=== PATIENT | male | born 1975 | race Caucasian/White ===

== ENCOUNTER 2017-05-15 09:33 | Inpatient (IN) | payer OTHER ==
[~2017-05-15] VITALS: Ht 167.6 cm; Wt 87.7 kg
[2017-05-15] VITALS (16 sets, daily range): BP systolic 112–124; BP diastolic 72–77; PULSE 60–89; RESP 20–28; TEMP 97.8–98.4; O2SAT 96–100
[2017-05-15] MEDS ORDERED: MORPHINE SULFATE 4 MG/ML INJ ONE ×2 (09:43→10:26)
[2017-05-15] MEDS ORDERED: ONDANSETRON HCL 4 MG/2 ML VIAL ONE (09:43)
[2017-05-15 10:03] LABS: AUTOMATED NEUTROPHIL # 16.3 TH/MM3 (1.8-7.7); BASOPHIL # 0.1 TH/MM3 (0-0.2); BASOPHIL % 0.6 % (0.0-2.0); EOSINOPHIL # 0.2 TH/MM3 (0-0.4); EOSINOPHIL % 1.1 % (0.0-4.0); HEMATOCRIT 43.9 % (39.0-51.0); HEMOGLOBIN 14.7 GM/DL (13.0-17.0); LYMPH % 7.7 % (9.0-44.0); LYMPHOCYTE # 1.5 TH/MM3 (1.0-4.8); MEAN CELL VOLUME 90.2 FL (80.0-100.0); MEAN CORPUSCULAR HEMOGLOBIN 30.3 PG (27.0-34.0); MEAN CORPUSCULAR HGB CONC 33.6 % (32.0-36.0); MEAN PLATELET VOLUME 8.6 FL (7.0-11.0); MONO % 5.1 % (0.0-8.0); NEUT % 85.5 % (16.0-70.0); PLATELET COUNT 281 TH/MM3 (150-450); RED BLOOD COUNT 4.86 MIL/MM3 (4.50-5.90); RED CELL DISTRIBUTION WIDTH 13.2 % (11.6-17.2)
[2017-05-15] MEDS ORDERED: PROPOFOL 200 MG/20 ML AMP ONE (10:05)
--- NOTE | 2017-05-15 10:10 | RADRPT ---
EXAM DATE/TIME: 05/15/2017 09:51 [facility] COMPARISON: No previous studies available for comparison. INDICATIONS : Trauma, fall from roof. RADIATION DOSE: 55.20 CTDIvol (mGy) MEDICAL HISTORY : None SURGICAL HISTORY : None. ENCOUNTER: Initial ACUITY: 1 day PAIN SCALE: 5/10 LOCATION: cranial TECHNIQUE: Multiple contiguous axial images were obtained of the head. Using automated exposure control and adj ustment of the mA and/or kV according to patient size, radiation dose was kept as low as reasonably a chievable to obtain optimal diagnostic quality images. DICOM format image data is available electro nically for review and comparison. FINDINGS: CEREBRUM: The ventricles are normal for age. No evidence of midline shift, mass lesion, hemorrhage or acute in farction. No extra-axial fluid collections are seen. POSTERIOR FOSSA: The cerebellum and brainstem are intact. The 4th ventricle is midline. The cerebellopontine angle i s unremarkable. EXTRACRANIAL: The visualized portion of the orbits is intact. SKULL: The calvaria is intact. No evidence of skull fracture. CONCLUSION: Negative for acute process. Carlos Mas MD FACR on May 15, 2017 at 10:07 Board Certified Radiologist. This report was verified electronically.
[2017-05-15] MEDS ORDERED: MIDAZOLAM HCL 5 MG/ML VIAL (1 ML) ONE ×2 (10:11)
--- NOTE | 2017-05-15 10:11 | RADRPT ---
EXAM DATE/TIME: 05/15/2017 09:51 [facility] COMPARISON: No previous studies available for comparison. INDICATIONS : Trauma, neck pain, fall from roof. RADIATION DOSE: 23.15 CTDIvol (mGy) MEDICAL HISTORY : None SURGICAL HISTORY : None. ENCOUNTER: Initial ACUITY: 1 day PAIN SCALE: 5/10 LOCATION: neck TECHNIQUE: Volumetric scanning of the cervical spine was performed. Multiplanar reconstructions in the sagittal, coronal and oblique axial planes were performed. Using automated exposure control and adjustment o f the mA and/or kV according to patient size, radiation dose was kept as low as reasonably achievable to obtain optimal diagnostic quality images. DICOM format image data is available electronically f or review and comparison. FINDINGS: VERTEBRAE: Normal vertebral body height. ALIGNMENT: No evidence of subluxation. C2-C3: The bony spinal canal is normal in size. No evidence of disc bulge or herniation. The neural forami na are bilaterally patent. C3-C4: The bony spinal canal is normal in size. No evidence of disc bulge or herniation. The neural forami na are bilaterally patent. C4-C5: The bony spinal canal is normal in size. No evidence of disc bulge or herniation. The neural forami na are bilaterally patent. C5-C6: The bony spinal canal is normal in size. No evidence of disc bulge or herniation. The neural forami na are bilaterally patent. C6-C7: The bony spinal canal is normal in size. No evidence of disc bulge or herniation. The neural forami na are bilaterally patent. C7-T1: The bony spinal canal is normal in size. No evidence of disc bulge or herniation. The neural forami na are bilaterally patent. CONCLUSION: Negative for fracture. Extensive subcutaneous emphysema from bilateral pneumothoraces. Carlos Mas MD FACR on May 15, 2017 at 10:08 Board Certified Radiologist. This report was verified electronically.
[2017-05-15] MEDS ORDERED: LIDOCAINE HCL 1% PF 30 ML VIAL ONE (10:12)
[2017-05-15] MEDS ORDERED: LIDOCAINE 1%/EPINEPHrine 1:100,000 SOLN 30 ML VIAL ONE (10:13)
[2017-05-15 10:14] LABS: PROTHROMBIN TIME - PATIENT 10.2 SEC (9.8-11.6)
--- NOTE | 2017-05-15 10:15 | RADRPT ---
EXAM DATE/TIME: 05/15/2017 09:51 [facility] COMPARISON: No previous studies available for comparison. INDICATIONS : Trauma, fall from roof. RADIATION DOSE: 64.04 CTDIvol (mGy) MEDICAL HISTORY : None SURGICAL HISTORY : None. ENCOUNTER: Initial ACUITY: 1 day PAIN SCORE: 5/10 LOCATION: facial TECHNIQUE: Volumetric scanning of the facial bones was performed. Using automated exposure control and adjustme nt of the mA and/or kV according to patient size, radiation dose was kept as low as reasonably achiev able to obtain optimal diagnostic quality images. DICOM format image data is available electronicall y for review and comparison. FINDINGS: ORBITS: The orbital and infraorbital osseous structures are intact. The retroconal structures have a normal configuration. No radiopaque foreign bodies are seen. NASAL BONE: The nasal bone and maxillary spine are intact ZYGOMATIC ARCHES: Symmetric without evidence of fracture. SINUSES: The maxillary, ethmoid and frontal sinuses are intact. No air-fluid levels seen. NASAL CAVITY: The nasal septum is intact and midline. The lacrimal ducts are intact. SOFT TISSUES: No radiopaque foreign bodies seen. No soft-tissue swelling is seen. INTRACRANIAL: No intracranial air seen. CRIBIFORM PLATE: Grossly intact. CONCLUSION: Negative for fracture. Moderate subcutaneous emphysema.. Carlos Mas MD FACR on May 15, 2017 at 10:12 Board Certified Radiologist. This report was verified electronically.
--- NOTE | 2017-05-15 10:30 | RADRPT ---
EXAM DATE/TIME: 05/15/2017 09:33 [facility] COMPARISON: No previous studies available for comparison. INDICATIONS : Fell 12 feet off roof pain left chest with shortness of breath. MEDICAL HISTORY : None. SURGICAL HISTORY : None. ENCOUNTER: Initial ACUITY: 1 day PAIN SCORE: 9/10 LOCATION: Left chest FINDINGS: A single portable frontal view the chest shows multiple acute left-sided rib fractures. These involve the third through ninth ribs. No discernible pneumothorax. Left apical pleural cap noted likely rela shine to blood or fluid. Right lung is clear. Subcutaneous air overlies the base of the neck. Heart is normal in size. CONCLUSION: 1. Left third through ninth rib fractures without pneumothorax. 2. Left apical cap likely related to fluid or blood. Honorio Neal Jr., MD on May 15, 2017 at 10:22 Board Certified Radiologist. This report was verified electronically.
--- NOTE | 2017-05-15 10:31 | RADRPT ---
EXAM DATE/TIME: 05/15/2017 09:33 [facility] COMPARISON: No previous studies available for comparison. INDICATIONS : Fell 12 feet from roof landing on back. MEDICAL HISTORY : None. SURGICAL HISTORY : None. ENCOUNTER: Initial ACUITY: 1 day PAIN SCORE: 10/10 LOCATION: Bilateral pelvis FINDINGS: 2 frontal views of the pelvis demonstrates no evidence of fracture. The bony pelvic ring is intact. Bony mineralization is normal. The soft tissues are intact. CONCLUSION: No acute disease. Honorio Neal Jr., MD on May 15, 2017 at 10:28 Board Certified Radiologist. This report was verified electronically.
[2017-05-15] MEDS ORDERED: ceFAZolin 2 GM PREMIX 50 ML ONE (10:33)
--- NOTE | 2017-05-15 10:39 | RADRPT ---
EXAM DATE/TIME: 05/15/2017 10:24 [facility] COMPARISON: CHEST SINGLE AP, May 15, 2017, 9:33. INDICATIONS : Bilateral chest tube placement. MEDICAL HISTORY : None. SURGICAL HISTORY : None. ENCOUNTER: Initial ACUITY: 1 day PAIN SCORE: Non-responsive. LOCATION: Bilateral chest FINDINGS: Left chest tube in good position. Right chest tube is extrapleural. Contusion is seen in the left l grayson CONCLUSION: Right chest tube is extrapleural. Carlos Mas MD FACR on May 15, 2017 at 10:35 Board Certified Radiologist. This report was verified electronically.
--- NOTE | 2017-05-15 10:40 | PD ---
HPI Chief Complaint: Fall off roof Time Seen by Provider: 09:38 Travel History International Travel<30 days: No Contact w/Intl Traveler<30days: No History of Present Illness HPI Middle age male here as trauma alert s/p fall off roof about 12 feet. Pt was initially a trauma 2 because they did not communicate the height he fell from and vital signs were stable. Pt complains of back pain and is moving all extremities with intact sensation. Pt had decreased breath sounds on left and bilateral crepitus on exam but CXR in trauma bay did not show pneumothorax. It showed multiple rib fracture on left. Pt is saturating at 95% on NC so decision made to have pt go to CT scan first before chest tube placement. My nurse Agatha was able to communicate with patient in [place]. He denies any PMH or allergies to medication. Pt was upgraded to trauma 1 after initial evaluation. I discussed with trauma surgeon Dr. Hayden and I accompanied pt to CT scan on monitor. Pt given morphine in trauma bay. PFSH Social History Tobacco Use: No Allergies-Medications (Allergen,Severity, Reaction): Coded Allergies: No Known Allergies (Verified Allergy, Unknown, 05/15/17) Reported Meds & Prescriptions Reported Meds & Active Scripts Active No Active Prescriptions or Reported Medications Review of Systems Except as stated in HPI: all other systems reviewed are Neg Physical Exam Narrative GENERAL: Middle age male in moderate distress. SKIN: Focused skin assessment warm/dry. HEAD: Atraumatic. Normocephalic. EYES: Pupils equal and round at 4mm bilaterally. ENT: No nasal bleeding or discharge. Mucous membranes pink and moist. NECK: Cervical spine collar in place. CARDIOVASCULAR: Regular rate and rhythm. No murmur appreciated. RESPIRATORY: + accessory muscle use. Coarse breath sounds on breath. Decreased breath sounds on left. CHEST WALL: +Crepitus in bilateral chest. GASTROINTESTINAL: Abdomen soft, non-tender, nondistended. MUSCULOSKELETAL: No obvious deformities. No clubbing. No cyanosis. No edema. NEUROLOGICAL: Awake and alert. No obvious cranial nerve deficits. Motor grossly within normal limits in all extremities. Sensation intact. Normal speech. PSYCHIATRIC: Appropriate mood and affect; insight and judgment normal. Data Data Last Documented VS Vital Signs Date Time Temp Pulse Resp B/P (MAP) Pulse Ox O2 Delivery O2 Flow Rate FiO2 05/15/17 11:00 97.8 88 20 124/77 (93) 97 Nasal Cannula 4.00 Orders Orders Ed Poc Ultrasound (05/15/17 09:40) I-Stat Profile (05/15/17 09:40) Complete Blood Count With Diff (05/15/17 09:40) Prothrombin Time / Inr (Pt) (05/15/17 09:40) Act Partial Throm Time (Ptt) (05/15/17 09:40) Type And Screen (05/15/17 09:40) Chest, Single Ap (05/15/17 09:40) Pelvis, Ap Only (Routine) (05/15/17 09:40) Iv Access Insert/Monitor (05/15/17 09:40) Ecg Monitoring (05/15/17 09:40) Oximetry (05/15/17 09:40) Oxygen Administration (05/15/17 09:40) Morphine Inj (Morphine Inj) (05/15/17 09:43) Ondansetron Inj (Zofran Inj) (05/15/17 09:43) Ct Brain W/O Iv Contrast(Rout) (05/15/17 09:48) Ct Cerv Spine W/O Contrast (05/15/17 09:48) Ct Abd/Pel W Iv Contrast(Rout) (05/15/17 09:48) Ct Thorax/ Chest W Iv Contrast (05/15/17 09:48) Ct Thor Spine W Iv Contrast (05/15/17 09:48) Ct Lumb Spine W Iv Contrast (05/15/17 09:48) Ct Facial Bones W/O Iv Cont (05/15/17 09:48) Propofol 200 Mg/20 Ml Inj (Diprivan 200 (05/15/17 10:05) Midazolam Inj (Versed Inj) (05/15/17 10:11) Midazolam Inj (Versed Inj) (05/15/17 10:11) Lidocaine Pf 1% Inj (Xylocaine-Mpf 1% In (05/15/17 10:12) Lidocai-Epi 1%-1:100,000 Inj (Xylocaine- (05/15/17 10:13) Morphine Inj (Morphine Inj) (05/15/17 10:26) Chest, Single Ap (05/15/17 ) Cefazolin 2 Gm Premix (Ancef 2 Gm Premix (05/15/17 10:33) Chest, Single Ap (05/15/17 ) Admit To Inpatient (05/15/17 ) Vital Signs (Adult) MAEGAN.QSHIFT (05/15/17 10:46) Intake + Output MAEGAN.Q8H (05/15/17 10:46) Neuro Checks MAEGAN.Q1H (05/15/17 10:46) Diet Npo (05/15/17 Lunch) Scd / Joel / Foot Pump MAEGAN.QSHIFT (05/15/17 10:46) Resp Incentive Spirometry (05/15/17 ) ^ Cervical Collar (05/15/17 10:46) Instruction (05/15/17 10:46) Complete Blood Count With Diff (05/16/17 06:00) Comprehensive Metabolic Panel (05/16/17 06:00) Sodium Chlor 0.9% 1000 Ml Inj (Ns 1000 M (05/15/17 11:00) Sodium Chloride 0.9% Flush (Ns Flush) (05/15/17 11:00) Enalaprilat Inj (Vasotec Inj) (05/15/17 11:00) Ondansetron Inj (Zofran Inj) (05/15/17 11:00) Pantoprazole Inj (Protonix Inj) (05/15/17 11:00) Docusate Sodium (Colace) (05/15/17 21:00) Magnesium Hydroxide Liq (Milk Of Magnesi (05/15/17 11:00) ^ Initiate Protocol (05/15/17 10:46) Instruction (05/15/17 10:46) [facility] (05/15/17 11:00) Chlorhexidine 2% Cloth (Chlorhexidine 2% (05/16/17 04:00) Chlorhexidine 2% Cloth (Chlorhexidine 2% (05/15/17 11:00) Mrsa Pcr Surveillance (05/15/17 10:46) Inpatient Certification (05/15/17 ) Consult Gui Gts (05/15/17 ) Iohexol 350 Inj (Omnipaque 350 Inj) (05/15/17 10:52) Admit Order (Ed Use Only) (05/15/17 11:06) Labs Laboratory Tests Test 05/15/17 09:40 White Blood Count 19.0 TH/MM3 Red Blood Count 4.86 MIL/MM3 Hemoglobin 14.7 GM/DL Bedside Hemoglobin 15.6 G/DL Hematocrit 43.9 % Bedside Hematocrit 46.0 % Mean Corpuscular Volume 90.2 FL Mean Corpuscular Hemoglobin 30.3 PG Mean Corpuscular Hemoglobin Concent 33.6 % Red Cell Distribution Width 13.2 % Platelet Count 281 TH/MM3 Mean Platelet Volume 8.6 FL Neutrophils (%) (Auto) 85.5 % Lymphocytes (%) (Auto) 7.7 % Monocytes (%) (Auto) 5.1 % Eosinophils (%) (Auto) 1.1 % Basophils (%) (Auto) 0.6 % Neutrophils # (Auto) 16.3 TH/MM3 Lymphocytes # (Auto) 1.5 TH/MM3 Monocytes # (Auto) 1.0 TH/MM3 Eosinophils # (Auto) 0.2 TH/MM3 Basophils # (Auto) 0.1 TH/MM3 CBC Comment DIFF FINAL Differential Comment Prothrombin Time 10.2 SEC Prothromb Time International Ratio 1.0 RATIO Activated Partial Thromboplast Time 22.9 SEC Bedside Sodium 139 MMOL/L Bedside Potassium 5.1 MMOL/L Bedside Chloride 101 MMOL/L Bedside Blood Urea Nitrogen 22 MG/DL Bedside Creatinine 0.9 MG/DL Bedside Glucose 155 MG/DL MDM Medical Decision Making Medical Screen Exam Complete: Yes Emergency Medical Condition: Yes Interpretation(s) Last Impressions Thoracic Spine CT 05/15/17947 Signed Impressions: Service Date/Time: Monday, May 15, 2017 09:58 - CONCLUSION: 1. No thoracic spine fracture. Honorio Neal Jr., MD Maxillofacial CT 05/15/17947 Signed Impressions: Service Date/Time: Monday, May 15, 2017 09:51 - CONCLUSION: Negative for fracture. Moderate subcutaneous emphysema.. Carlos Mas MD FACR Lumbar Spine CT 05/15/17947 Signed Impressions: Service Date/Time: Monday, May 15, 2017 09:58 - CONCLUSION: Negative for acute fracture. Mild degenerative changes. Carlos Mas MD FACR Head CT 05/15/17947 Signed Impressions: Service Date/Time: Monday, May 15, 2017 09:51 - CONCLUSION: Negative for acute process. Carlos Mas MD FACR Chest CT 05/15/17947 Signed Impressions: Service Date/Time: Monday, May 15, 2017 09:58 - CONCLUSION: 1. Bilateral rib fractures with moderate sized bilateral pneumothoraces. 2. Subcutaneous air overlying the neck and right chest. 3. Small amount of fluid within the left apex. Honorio Neal Jr., MD Cervical Spine CT 05/15/1748 Signed Impressions: Service Date/Time: Monday, May 15, 2017 09:51 - CONCLUSION: Negative for fracture. Extensive subcutaneous emphysema from bilateral pneumothoraces. Carlos Mas MD FACR Abdomen/Pelvis CT 05/15/1748 Signed Impressions: Service Date/Time: Monday, May 15, 2017 09:58 - CONCLUSION: 1. No abdominal visceral injury. 2. Multiple findings along the chest including subcutaneous emphysema, rib fractures, bilateral pneumothoraces, greater on the left. This will be discussed on CT chest. 3. Small incidental enhancing lesion in the liver. Silverio Ruffin MD Pelvis X-Ray 05/15/1740 Signed Impressions: Service Date/Time: Monday, May 15, 2017 09:33 - CONCLUSION: No acute disease. Honorio Neal Jr., MD Chest X-Ray 05/15/1740 Signed Impressions: Service Date/Time: Monday, May 15, 2017 09:33 - CONCLUSION: 1. Left third through ninth rib fractures without pneumothorax. 2. Left apical cap likely related to fluid or blood. Honorio Neal Jr., MD Chest X-Ray 05/15/17 0000 Signed Impressions: Service Date/Time: Monday, May 15, 2017 10:36 - CONCLUSION: 1. Repositioned right thoracostomy tube without discernible pneumothorax. 2. Developing consolidation within the left lung likely related to either fluid or contusion. 3. Left pneumothorax is not discernible on this study. Honorio Neal Jr., MD Chest X-Ray 05/15/17 0000 Signed Impressions: Service Date/Time: Monday, May 15, 2017 10:24 - CONCLUSION: Right chest tube is extrapleural. Carlos Mas MD FACR Differential Diagnosis Hemothorax vs. pneumothorax Narrative Course Middle age here as trauma after falling off roof at height of [address] a/p showed no abdominal visceral injury. CT cspine negative. CT chest showed bilateral rib fractures with moderate sized bilateral pneumothoraces. Subcutaneous air overlying neck and right chest. Small amount of fluid within left apex. CT brain negative. CT lumbar spine showed negative fracture. CT facial negative. CT TS showed no fracture. CXR showed left third through ninth rib fractures without pneumothorax. Left apical cap likely related to fluid or blood. Xray pelvis negative. Pt was brought back to the trauma bay for bilateral chest tube placement. Dr. Ontiveros did procedural sedation with 5mg of versed and 30mg of propofol. I placed left side chest tube while Dr. Pappas place right side chest tube. Dr. Hayden was in the room at this time. Repeat CXR showed right chest tube is extrapleural and left chest tube in good position so Dr. Pappas removed right chest tube and reinserted another chest tube in right chest. Repeat CXR showed repositioned right thoracostomy tube without discernible pneumothorax. Developing consolidation in left lung likely fluid or contusion. Left pneumothorax not discernible. Labs reviewed, leukocytosis at 19,000. H/H normal. Pt admitted to ICU under Dr. Hayden. Explained to family members what the results are as per patient request and answered all questions. Critical Care Narrative Aggregate critical care time was 40 minutes. Time to perform other separately billable procedures was not included in the critical care time. My time did not include minutes spent treating any other patients simultaneously or on activities that did not directly contribute to the patient's treatment. The services I provided to this patient were to treat and/or prevent clinically significant deterioration that could result in: cardiovascular collapse and . I provided critical care services requiring my management, as noted below: Chart data review, documentation time, medication orders and management, vital sign assessments/reviewing monitor data, ordering and reviewing lab tests, ordering and interpreting/reviewing x-rays and diagnostic studies, care of the patient and discussion of the patient with the admitting physicians. Procedures Procedure Narrative CHEST TUBE THORACOSTOMY: The left chest was prepped with chlorhexadine and sterilely draped. The area of the fifth intercostal interspace was infiltrated with 1% lidocaine plain. A 3 centimeter incision was made with a scalpel at the fifth intercostal space. Blunt dissection to the fourth intercostal interspace performed and the pleura was punctured with immediate bean of air. Finger was inserted in the space and thoracostomy tube was placed, directed posteriorly and superiorly. Tube draining well. The thoracostomy tube was secured with suture. Sterile seal dressing placed. Patient tolerated procedure well. Diagnosis Primary Impression: Bilateral pneumothoraces Admitting Information Admitting Physician Requests: Admit Scripts No Active Prescriptions or Reported Meds Julia Bobby DO May 15, 2017 10:40
--- NOTE | 2017-05-15 10:42 | RADRPT ---
EXAM DATE/TIME: 05/15/2017 09:58 [facility] COMPARISON: No previous studies available for comparison. INDICATIONS : Trauma, fall from roof. IV CONTRAST: 96 cc Omnipaque 350 (iohexol) IV ORAL CONTRAST: No oral contrast ingested. RADIATION DOSE: 18.62 CTDIvol (mGy) MEDICAL HISTORY : None SURGICAL HISTORY : None. ENCOUNTER: Initial ACUITY: 1 day PAIN SCALE: 5/10 LOCATION: abdomen TECHNIQUE: Volumetric scanning of the abdomen and pelvis was performed. Using automated exposure control and ad justment of the mA and/or kV according to patient size, radiation dose was kept as low as reasonably achievable to obtain optimal diagnostic quality images. DICOM format image data is available electro nically for review and comparison. FINDINGS: LOWER LUNGS: There is left pneumothorax as well as a small right-sided pneumothorax. Extensive subcutaneous emphys dionte the right. Old left-sided rib fractures. LIVER: Homogeneous density small enhancing lesion along the lateral right lobe. There is no dilation of the biliary tree. No calcified gallstones. SPLEEN: Normal size without lesion. PANCREAS: Within normal limits. KIDNEYS: Normal in size and shape. There is no mass, stone or hydronephrosis. ADRENAL GLANDS: Within normal limits. VASCULAR: There is no aortic aneurysm. BOWEL/MESENTERY: The stomach, small bowel, and colon demonstrate no acute abnormality. There is no free intraperitone al air or fluid. ABDOMINAL WALL: Within normal limits. RETROPERITONEUM: There is no lymphadenopathy. BLADDER: No wall thickening or mass. REPRODUCTIVE: Within normal limits. INGUINAL: There is no lymphadenopathy or hernia. MUSCULOSKELETAL: Multiple left-sided rib fractures. CONCLUSION: 1. No abdominal visceral injury. 2. Multiple findings along the chest including subcutaneous emphysema, rib fractures, bilateral pneum othoraces, greater on the left. This will be discussed on CT chest. 3. Small incidental enhancing lesion in the liver. Silverio Ruffin MD on May 15, 2017 at 10:14 Board Certified Radiologist. This report was verified electronically.
--- NOTE | 2017-05-15 10:45 | RADRPT ---
EXAM DATE/TIME: 05/15/2017 09:58 [facility] COMPARISON: No previous studies available for comparison. INDICATIONS : Trauma, fall from roof. IV CONTRAST: 96 cc Omnipaque 350 (iohexol) IV RADIATION DOSE: 18.62 CTDIvol (mGy) MEDICAL HISTORY : None SURGICAL HISTORY : None. ENCOUNTER: Initial ACUITY: 1 day PAIN SCALE: 5/10 LOCATION: chest TECHNIQUE: Volumetric scanning of the chest was performed. Using automated exposure control and adjustment of t he mA and/or kV according to patient size, radiation dose was kept as low as reasonably achievable to obtain optimal diagnostic quality images. DICOM format image data is available electronically for review and comparison. Follow-up recommendations for detected pulmonary nodules are based at a minimum on nodule size and pa tient risk factors according to Fleischner Society Guidelines. FINDINGS: Moderate-sized bilateral anterior layering pneumothoraces. The left is slightly larger than the right . Subcutaneous air tracks over the right chest and the base of the neck bilaterally. Acute left first through 10th rib fractures noted. Acute right first and second rib fractures. The heart and mediasti nal structures are unremarkable. A small amount of fluid is seen at the left apex. No mediastinal hem atoma. Pulmonary arteries and aorta are normal in caliber. See the CT the abdomen and pelvis reported separately. CONCLUSION: 1. Bilateral rib fractures with moderate sized bilateral pneumothoraces. 2. Subcutaneous air overlying the neck and right chest. 3. Small amount of fluid within the left apex. Honorio Neal Jr., MD on May 15, 2017 at 10:32 Board Certified Radiologist. This report was verified electronically.
--- NOTE | 2017-05-15 10:51 | RADRPT ---
EXAM DATE/TIME: 05/15/2017 09:58 [facility] COMPARISON: No previous studies available for comparison. INDICATIONS : Trauma, fall from roof. IV CONTRAST: 94 cc Omnipaque 350 (iohexol) IV ; Cumulative dose for multiple exams. RADIATION DOSE: 18.62 CTDIvol (mGy) MEDICAL HISTORY : None SURGICAL HISTORY : None. ENCOUNTER: Initial ACUITY: 1 day PAIN SCALE: 5/10 LOCATION: lower back TECHNIQUE: Volumetric scanning of the lumbar spine was performed. Multiplanar reconstructions in the sagittal, coronal and oblique axial planes were performed. Using automated exposure control and adjustment of the mA and/or kV according to patient size, radiation dose was kept as low as reasonably achievable t o obtain optimal diagnostic quality images. DICOM format image data is available electronically for review and comparison. FINDINGS: CONUS MEDULLARIS: Normal. PARASPINAL SOFT TISSUES: Normal. LUMBAR CORD: Normal. DURAL SAC: Normal. L1-L2: The disc, uncovertebral joints, central canal, foramina, and facets are normal. L2-L3: The disc, uncovertebral joints, central canal, foramina, and facets are normal. L3-L4: The disc, uncovertebral joints, central canal, foramina, and facets are normal. CONCLUSION: Negative for acute fracture. Mild degenerative changes. Carlos Mas MD FACR on May 15, 2017 at 10:39 Board Certified Radiologist. This report was verified electronically.
[2017-05-15] MEDS ORDERED: IOHEXOL 350 MG/ML 10 ML VIAL (for RAD DIAG) IVCONTRAST ONE (10:52)
--- NOTE | 2017-05-15 10:53 | RADRPT ---
EXAM DATE/TIME: 05/15/2017 10:36 [facility] COMPARISON: CHEST SINGLE AP, May 15, 2017, 10:24. INDICATIONS : Right chest tube repositioning. MEDICAL HISTORY : None. SURGICAL HISTORY : None. ENCOUNTER: Initial ACUITY: 1 day PAIN SCORE: Non-responsive. LOCATION: Right chest TECH NOTE: KEVIN REDDY MR#[id number] :[birth year] Exam date/desc:May 15, 2017CHEST SINGLE AP FINDINGS: Single portable frontal view the chest shows a right thoracostomy tube which has been repositioned in to the hemithorax. The tip projects towards the midline near the superior portion of the right hilum. No pneumothorax observed. The left-sided pneumothorax is not well seen. Consolidation is now noted w ithin the left upper lobe. Subcutaneous air overlies the right chest. Bilateral rib fractures. Heart is normal in size. CONCLUSION: 1. Repositioned right thoracostomy tube without discernible pneumothorax. 2. Developing consolidation within the left lung likely related to either fluid or contusion. 3. Left pneumothorax is not discernible on this study. Honorio Neal Jr., MD on May 15, 2017 at 10:49 Board Certified Radiologist. This report was verified electronically.
[2017-05-15] MEDS ORDERED: CHLORHEXIDINE GLUCONATE 2 % 1 PACK (2 CLOTHS) TOP PRN (11:00)
[2017-05-15] MEDS ORDERED: MAGNESIUM HYDROXIDE SUSP 30 ML CUP PO PRN (11:00)
[2017-05-15] MEDS ORDERED: MISCELLANEOUS NURSING INFORMATION XX SCH (11:00)
[2017-05-15] MEDS ORDERED: ENALAPRILAT 1.25 MG/ML VIAL IV PUSH PRN (11:00)
[2017-05-15] MEDS ORDERED: SODIUM CHLORIDE 0.9% FLUSH 10 ML FLUSH IV FLUSH PRN ×2 (11:00→14:00)
[2017-05-15] MEDS: SODIUM CHLOR 0.9% 1000 ML INJ 1,000 ML IV SCH ×2 (11:02→21:42)
[2017-05-15] MEDS: PANTOPRAZOLE SODIUM 40 MG VIAL IVP SCH (11:03)
--- NOTE | 2017-05-15 11:06 | PD ---
Data Data Last Documented VS Vital Signs Date Time Temp Pulse Resp B/P (MAP) Pulse Ox O2 Delivery O2 Flow Rate FiO2 05/15/17 11:00 97.8 88 20 124/77 (93) 97 Nasal Cannula 4.00 Orders Orders Ed Poc Ultrasound (05/15/17 09:40) I-Stat Profile (05/15/17 09:40) Complete Blood Count With Diff (05/15/17 09:40) Prothrombin Time / Inr (Pt) (05/15/17 09:40) Act Partial Throm Time (Ptt) (05/15/17 09:40) Type And Screen (05/15/17 09:40) Chest, Single Ap (05/15/17 09:40) Pelvis, Ap Only (Routine) (05/15/17 09:40) Iv Access Insert/Monitor (05/15/17 09:40) Ecg Monitoring (05/15/17 09:40) Oximetry (05/15/17 09:40) Oxygen Administration (05/15/17 09:40) Morphine Inj (Morphine Inj) (05/15/17 09:43) Ondansetron Inj (Zofran Inj) (05/15/17 09:43) Ct Brain W/O Iv Contrast(Rout) (05/15/17 09:48) Ct Cerv Spine W/O Contrast (05/15/17 09:48) Ct Abd/Pel W Iv Contrast(Rout) (05/15/17 09:48) Ct Thorax/ Chest W Iv Contrast (05/15/17 09:48) Ct Thor Spine W Iv Contrast (05/15/17 09:48) Ct Lumb Spine W Iv Contrast (05/15/17 09:48) Ct Facial Bones W/O Iv Cont (05/15/17 09:48) Propofol 200 Mg/20 Ml Inj (Diprivan 200 (05/15/17 10:05) Midazolam Inj (Versed Inj) (05/15/17 10:11) Midazolam Inj (Versed Inj) (05/15/17 10:11) Lidocaine Pf 1% Inj (Xylocaine-Mpf 1% In (05/15/17 10:12) Lidocai-Epi 1%-1:100,000 Inj (Xylocaine- (05/15/17 10:13) Morphine Inj (Morphine Inj) (05/15/17 10:26) Chest, Single Ap (05/15/17 ) Cefazolin 2 Gm Premix (Ancef 2 Gm Premix (05/15/17 10:33) Chest, Single Ap (05/15/17 ) Admit To Inpatient (05/15/17 ) Vital Signs (Adult) MAEGAN.QSHIFT (05/15/17 10:46) Intake + Output MAEGAN.Q8H (05/15/17 10:46) Neuro Checks MAEGAN.Q1H (05/15/17 10:46) Diet Npo (05/15/17 Lunch) Scd / Joel / Foot Pump MAEGAN.QSHIFT (05/15/17 10:46) Resp Incentive Spirometry (05/15/17 ) ^ Cervical Collar (05/15/17 10:46) Instruction (05/15/17 10:46) Complete Blood Count With Diff (05/16/17 06:00) Comprehensive Metabolic Panel (05/16/17 06:00) Sodium Chlor 0.9% 1000 Ml Inj (Ns 1000 M (05/15/17 11:00) Sodium Chloride 0.9% Flush (Ns Flush) (05/15/17 11:00) Enalaprilat Inj (Vasotec Inj) (05/15/17 11:00) Ondansetron Inj (Zofran Inj) (05/15/17 11:00) Pantoprazole Inj (Protonix Inj) (05/15/17 11:00) Docusate Sodium (Colace) (05/15/17 21:00) Magnesium Hydroxide Liq (Milk Of Magnesi (05/15/17 11:00) ^ Initiate Protocol (05/15/17 10:46) Instruction (05/15/17 10:46) [facility] Nursing Information (05/15/17 11:00) Chlorhexidine 2% Cloth (Chlorhexidine 2% (05/16/17 04:00) Chlorhexidine 2% Cloth (Chlorhexidine 2% (05/15/17 11:00) Mrsa Pcr Surveillance (05/15/17 10:46) Inpatient Certification (05/15/17 ) Consult Gui Gts (05/15/17 ) Iohexol 350 Inj (Omnipaque 350 Inj) (05/15/17 10:52) Admit Order (Ed Use Only) (05/15/17 11:06) Labs Laboratory Tests Test 05/15/17 09:40 White Blood Count 19.0 TH/MM3 Red Blood Count 4.86 MIL/MM3 Hemoglobin 14.7 GM/DL Bedside Hemoglobin 15.6 G/DL Hematocrit 43.9 % Bedside Hematocrit 46.0 % Mean Corpuscular Volume 90.2 FL Mean Corpuscular Hemoglobin 30.3 PG Mean Corpuscular Hemoglobin Concent 33.6 % Red Cell Distribution Width 13.2 % Platelet Count 281 TH/MM3 Mean Platelet Volume 8.6 FL Neutrophils (%) (Auto) 85.5 % Lymphocytes (%) (Auto) 7.7 % Monocytes (%) (Auto) 5.1 % Eosinophils (%) (Auto) 1.1 % Basophils (%) (Auto) 0.6 % Neutrophils # (Auto) 16.3 TH/MM3 Lymphocytes # (Auto) 1.5 TH/MM3 Monocytes # (Auto) 1.0 TH/MM3 Eosinophils # (Auto) 0.2 TH/MM3 Basophils # (Auto) 0.1 TH/MM3 CBC Comment DIFF FINAL Differential Comment Prothrombin Time 10.2 SEC Prothromb Time International Ratio 1.0 RATIO Activated Partial Thromboplast Time 22.9 SEC Bedside Sodium 139 MMOL/L Bedside Potassium 5.1 MMOL/L Bedside Chloride 101 MMOL/L Bedside Blood Urea Nitrogen 22 MG/DL Bedside Creatinine 0.9 MG/DL Bedside Glucose 155 MG/DL MDM Supervised Visit with NE: No Narrative Course I was asked to assist Dr. Jones with placement of chest tubes. This is a kiswahili only speaker presents after a fall from roof. Has bilateral pneumothoraces and pulmonary contusion, multiple bilateral rib fractures. I was placing right side chest tube while dr. jones placing left side chest tube and Dr. Ontiveros sedating. Full reads pending, Dr. Love arrived while procedures in progress. Patient given 2gm Ancef on my verbal order during chest tube exchange for prophylaxis. Dr. Ontiveros giving sedation. Care of patient then transferred to Dr. Love. Procedures Procedure Narrative Under emergent/implied consent CHEST TUBE THORACOSTOMY: The 36f left chest was prepped with chlorhexadine and sterilely draped. The area of the fifth intercostal interspace was infiltrated with 1% lidocaine plain. A 2 centimeter incision was made with a scalpel at the fifth intercostal space. Blunt dissection to the fourth intercostal interspace performed and the pleura was punctured with immediate bean of air. Finger was inserted in the space and thoracostomy tube was placed, directed posteriorly and superiorly. Tube draining well. The thoracostomy tube was secured with suture. Sterile seal dressing placed. Patient tolerated procedure well. After chest xray, the initial chest tube was placed in the large area of acummulated subcutaneous air. This chest tube was removed and discarded, the patient's surgical wound was re-prepped with chlorhexadine and a new 36f chest tube was inserted and attatched to suction. This was confirmed by CXR and there was small blood ~50cc immediate drainage. Secured with silk suture and dressing proceudre repeated as above. Diagnosis Primary Impression: Bilateral pneumothoraces Scripts No Active Prescriptions or Reported Dane Stanton MD May 15, 2017 11:06
--- NOTE | 2017-05-15 11:28 | RADRPT ---
EXAM DATE/TIME: 05/15/2017 09:58 [facility] COMPARISON: No previous studies available for comparison. INDICATIONS : Trauma, fall from roof IV CONTRAST: 94 cc Omnipaque 350 (iohexol) IV ; Cumulative dose for multiple exams. RADIATION DOSE: 18.62 CTDIvol (mGy) MEDICAL HISTORY : None SURGICAL HISTORY : None. ENCOUNTER: Initial ACUITY: 1 day PAIN SCALE: 5/10 LOCATION: chest TECHNIQUE: Volumetric scanning of the thoracic spine was performed. Multiplanar reconstructions in the sagittal , coronal and oblique axial planes were performed. Using automated exposure control and adjustment o f the mA and/or kV according to patient size, radiation dose was kept as low as reasonably achievable to obtain optimal diagnostic quality images. DICOM format image data is available electronically fo r review and comparison. FINDINGS: The vertebral bodies of the thoracic spine are in normal alignment without evidence of subluxation. Vertebral body height is maintained. No fractures are seen. Subcutaneous air noted posteriorly and t owards the right. T1-T2: Normal. T2-T3: The thecal sac has a normal diameter. No evidence of disc bulge or protrusion. T3-T4: The thecal sac has a normal diameter. No evidence of disc bulge or protrusion. T4-T5: The thecal sac has a normal diameter. No evidence of disc bulge or protrusion. T5-T6: The thecal sac has a normal diameter. No evidence of disc bulge or protrusion. T6-T7: The thecal sac has a normal diameter. No evidence of disc bulge or protrusion. T7-T8: The thecal sac has a normal diameter. No evidence of disc bulge or protrusion. T8-T9: The thecal sac has a normal diameter. No evidence of disc bulge or protrusion. T9-T10: The thecal sac has a normal diameter. No evidence of disc bulge or protrusion. T10-T11: The thecal sac has a normal diameter. No evidence of disc bulge or protrusion. T11-T12: The thecal sac has a normal diameter. No evidence of disc bulge or protrusion. T12-L1: The thecal sac has a normal diameter. No evidence of disc bulge or protrusion. CONCLUSION: 1. No thoracic spine fracture. Honorio Neal Jr., MD on May 15, 2017 at 11:02 Board Certified Radiologist. This report was verified electronically.
[2017-05-15] MEDS ORDERED: oxyCODONE/ACETAMINOPHEN 5 MG/325 MG TAB PO PRN ×2 (13:30→14:00)
[2017-05-15] MEDS ORDERED: oxyCODONE/ACETAMINOPHEN 10 MG/325 MG TAB PO PRN (13:30)
[2017-05-15] MEDS: MORPHINE SULFATE 2 MG/ML INJ IV PUSH PRN ×2 (13:42→21:42)
[2017-05-15] MEDS ORDERED: NALOXONE HCL 0.4 MG/ML AMP IV PUSH PRN (14:00)
[2017-05-15] MEDS ORDERED: Post-op Orders (for Pharmacy) XX ONE (14:00)
--- NOTE | 2017-05-15 14:05 | HHI.CCPN ---
Subjective Brief History [id number]-old male fell off about 10 feet the roof. Came as priority 2 trauma alert but upgraded to priority 1 due to significance of injuries. On arrival patient is awake and alert complaining about chest pain Patient is resuscitated and worked up according to trauma principles Final diagnosis Bilateral hemo-pneumothoraces Bilateral serial rib fractures Bilateral pulmonary contusions Patient is admitted to ICU will be treated per clinical indices if the pneumothorax becomes bigger we will place second chest tube on the left side Objective Vital Signs Date Time Temp Pulse Resp B/P (MAP) Pulse Ox O2 Delivery O2 Flow Rate FiO2 05/15/17 12:50 97.9 78 20 112/72 (85) 99 4.00 05/15/17 12:00 Nasal Cannula Result Diagram: 05/15/17939 Imaging Last 24 hours Impressions Thoracic Spine CT 05/15/17947 Signed Impressions: Service Date/Time: Monday, May 15, 2017 09:58 - CONCLUSION: 1. No thoracic spine fracture. Honorio Neal Jr., MD Maxillofacial CT 05/15/17947 Signed Impressions: Service Date/Time: Monday, May 15, 2017 09:51 - CONCLUSION: Negative for fracture. Moderate subcutaneous emphysema.. Carlos Mas MD FACR Lumbar Spine CT 05/15/17947 Signed Impressions: Service Date/Time: Monday, May 15, 2017 09:58 - CONCLUSION: Negative for acute fracture. Mild degenerative changes. Carlos Mas MD FACR Head CT 05/15/17947 Signed Impressions: Service Date/Time: Monday, May 15, 2017 09:51 - CONCLUSION: Negative for acute process. Carlos Mas MD FACR Chest CT 05/15/17947 Signed Impressions: Service Date/Time: Monday, May 15, 2017 09:58 - CONCLUSION: 1. Bilateral rib fractures with moderate sized bilateral pneumothoraces. 2. Subcutaneous air overlying the neck and right chest. 3. Small amount of fluid within the left apex. Honorio Neal Jr., MD Cervical Spine CT 05/15/17947 Signed Impressions: Service Date/Time: Monday, May 15, 2017 09:51 - CONCLUSION: Negative for fracture. Extensive subcutaneous emphysema from bilateral pneumothoraces. Carlos Mas MD FACR Abdomen/Pelvis CT 05/15/17947 Signed Impressions: Service Date/Time: Monday, May 15, 2017 09:58 - CONCLUSION: 1. No abdominal visceral injury. 2. Multiple findings along the chest including subcutaneous emphysema, rib fractures, bilateral pneumothoraces, greater on the left. This will be discussed on CT chest. 3. Small incidental enhancing lesion in the liver. Silverio Ruffin MD Pelvis X-Ray 05/15/1740 Signed Impressions: Service Date/Time: Monday, May 15, 2017 09:33 - CONCLUSION: No acute disease. Honorio Neal Jr., MD Chest X-Ray 05/15/1740 Signed Impressions: Service Date/Time: Monday, May 15, 2017 09:33 - CONCLUSION: 1. Left third through ninth rib fractures without pneumothorax. 2. Left apical cap likely related to fluid or blood. Honorio Neal Jr., MD Chest X-Ray 05/15/17 0000 Signed Impressions: Service Date/Time: Monday, May 15, 2017 10:36 - CONCLUSION: 1. Repositioned right thoracostomy tube without discernible pneumothorax. 2. Developing consolidation within the left lung likely related to either fluid or contusion. 3. Left pneumothorax is not discernible on this study. Honorio Neal Jr., MD Chest X-Ray 05/15/17 0000 Signed Impressions: Service Date/Time: Monday, May 15, 2017 10:24 - CONCLUSION: Right chest tube is extrapleural. MD RAVIN Carty Slobodan MD May 15, 2017 14:05
[2017-05-15] MEDS ORDERED: PILL SPLITTER OTHER PRN (14:15)
--- NOTE | 2017-05-15 14:30 | PD.CONS ---
HPI Service Critical Care Medicine Consult Requested By Dr. Love Reason for Consult Trauma Primary Care Physician Unknown History of Present Illness 41-year-old gentleman, with unremarkable past medical history, no brought into ED as a level 2 trauma after a fall from about 12 feet, graded to level 1. In the emergency room, patient was found to have bilateral pneumothoraces and bilateral rib fractures and possible pulmonary contusion. Bilateral chest tubes were emergency placed. Patient was admitted to the ICU, currently resting in bed, complaining of bilateral chest pain. Shortness of breath is improved. Review of Systems Constitutional: DENIES: Fever, Chills Eyes: DENIES: Vision loss, Double Vision Ears, nose, mouth, throat: COMPLAINS OF: Throat pain Respiratory: COMPLAINS OF: Shortness of breath, DENIES: Cough, Wheezing Cardiovascular: COMPLAINS OF: Chest pain, DENIES: Palpitations, Lower Extremity Edema Gastrointestinal: DENIES: Abdominal pain, Nausea, Vomiting Genitourinary: DENIES: Dysuria Neurologic: DENIES: Headache, Seizures Past Family Social History Allergies: Coded Allergies: No Known Allergies (Verified Allergy, Unknown, 05/15/17) Past Medical History None Past Surgical History None Reported Medications Reported Meds & Active Scripts Active No Active Prescriptions or Reported Medications Active Ordered Medications Current Medications Medications (Trade) Dose Ordered Sig/Ector Route Start Time Stop Time Status Last Admin Sodium Chloride 1,000 ml @ 125 mls/hr Q8H IV 05/15/17 11:00 05/15/17 11:02 (Vasotec Inj) 1.25 mg Q8H PRN IV PUSH 05/15/17 11:00 (Zofran Inj) 4 mg Q6H PRN IV PUSH 05/15/17 11:00 (Protonix Inj) 40 mg Q24H IVP 05/15/17 11:00 05/15/17 11:03 (Colace) 100 mg BID PO 05/15/17 21:00 (Milk Of Magnesia Liq) 30 ml Q6H PRN PO 05/15/17 11:00 Miscellaneous Information 1 Q361D XX 05/15/17 11:00 (Chlorhexidine 2% Cloth) 3 pack Taper DAILY@04 TOP 05/16/17 04:00 05/12/18 03:59 (Chlorhexidine 2% Cloth) 3 pack UNSCH PRN TOP 05/15/17 11:00 (Morphine Inj) 3 mg Q3H PRN IV PUSH 05/15/17 13:45 05/15/17 13:42 (NS Flush) 2 ml UNSCH PRN IV FLUSH 05/15/17 14:00 (NS Flush) 2 ml BID IV FLUSH 05/15/17 21:00 (Percocet 5-325 Mg) 1 tab Q4H PRN PO 05/15/17 14:00 (Dilaudid) 1 mg Q2H PRN PO 05/15/17 14:00 (Narcan Inj) 0.4 mg UNSCH PRN IV PUSH 05/15/17 14:00 (Robaxin) 500 mg Q8HR PO 05/15/17 14:15 (Pill Splitter) 1 ea UNSCH PRN OTHER 05/15/17 14:15 Family History Unremarkable Social History Denies tobacco, no drugs, occasional alcohol but not daily Physical Exam Vital Signs Vital Signs Date Time Temp Pulse Resp B/P (MAP) Pulse Ox O2 Delivery O2 Flow Rate FiO2 05/15/17 12:50 97.9 78 20 112/72 (85) 99 4.00 05/15/17 12:00 97.9 76 20 118/77 (91) 98 Nasal Cannula 4.00 05/15/17 11:09 98.0 89 20 120/75 (90) 98 Nasal Cannula 4.00 05/15/17 11:00 97.8 88 20 124/77 (93) 97 Nasal Cannula 4.00 05/15/17 10:53 89 20 97 Nasal Cannula 4.00 05/15/17 10:50 22 97 Nasal Cannula 4.00 05/15/17 10:50 97 Nasal Cannula 4.00 05/15/17 10:00 96 3.00 05/15/17 09:49 96 4.00 Physical Exam General - middle-aged gentleman, awake, in mild painful distress HEENT - pupils equal, reactive, sclerae anicteric, neck supple, no nuchal rigidity, neck veins not distended, no carotid bruit, no crepitus CV - regular S1, S2, no murmurs, bilateral chest tubes on suction with air leak Chest - clear b/l, good air entry, no wheezes Abdomen - soft, non-tender, non-distended, BS present, no hepatomegaly, no splenomegaly Skin - no rashes, no cyanosis Extremities - warm and well perfused, no edema, + peripheral pulses, no clubbing Neuro -awake, alert, oriented 3, moves all extremities on command Laboratory Laboratory Tests Test 05/15/17 09:40 White Blood Count 19.0 Red Blood Count 4.86 Hemoglobin 14.7 Bedside Hemoglobin 15.6 Hematocrit 43.9 Bedside Hematocrit 46.0 Mean Corpuscular Volume 90.2 Mean Corpuscular Hemoglobin 30.3 Mean Corpuscular Hemoglobin Concent 33.6 Red Cell Distribution Width 13.2 Platelet Count 281 Mean Platelet Volume 8.6 Neutrophils (%) (Auto) 85.5 Lymphocytes (%) (Auto) 7.7 Monocytes (%) (Auto) 5.1 Eosinophils (%) (Auto) 1.1 Basophils (%) (Auto) 0.6 Neutrophils # (Auto) 16.3 Lymphocytes # (Auto) 1.5 Monocytes # (Auto) 1.0 Eosinophils # (Auto) 0.2 Basophils # (Auto) 0.1 CBC Comment DIFF FINAL Differential Comment Prothrombin Time 10.2 Prothromb Time International Ratio 1.0 Activated Partial Thromboplast Time 22.9 Bedside Sodium 139 Bedside Potassium 5.1 Bedside Chloride 101 Bedside Blood Urea Nitrogen 22 Bedside Creatinine 0.9 Bedside Glucose 155 Result Diagram: 05/15/17939 Imaging Last Impressions Thoracic Spine CT 05/15/17947 Signed Impressions: Service Date/Time: Monday, May 15, 2017 09:58 - CONCLUSION: 1. No thoracic spine fracture. Honorio Neal Jr., MD Maxillofacial CT 05/15/17947 Signed Impressions: Service Date/Time: Monday, May 15, 2017 09:51 - CONCLUSION: Negative for fracture. Moderate subcutaneous emphysema.. Carlos Mas MD FACR Lumbar Spine CT 05/15/17947 Signed Impressions: Service Date/Time: Monday, May 15, 2017 09:58 - CONCLUSION: Negative for acute fracture. Mild degenerative changes. Carlos Mas MD FACR Head CT 05/15/17947 Signed Impressions: Service Date/Time: Monday, May 15, 2017 09:51 - CONCLUSION: Negative for acute process. Carlos Mas MD FACR Chest CT 05/15/17947 Signed Impressions: Service Date/Time: Monday, May 15, 2017 09:58 - CONCLUSION: 1. Bilateral rib fractures with moderate sized bilateral pneumothoraces. 2. Subcutaneous air overlying the neck and right chest. 3. Small amount of fluid within the left apex. Honorio Neal Jr., MD Cervical Spine CT 05/15/17947 Signed Impressions: Service Date/Time: Monday, May 15, 2017 09:51 - CONCLUSION: Negative for fracture. Extensive subcutaneous emphysema from bilateral pneumothoraces. Carlos Mas MD FACR Abdomen/Pelvis CT 05/15/17947 Signed Impressions: Service Date/Time: Monday, May 15, 2017 09:58 - CONCLUSION: 1. No abdominal visceral injury. 2. Multiple findings along the chest including subcutaneous emphysema, rib fractures, bilateral pneumothoraces, greater on the left. This will be discussed on CT chest. 3. Small incidental enhancing lesion in the liver. Silverio Ruffin MD Pelvis X-Ray 05/15/17939 Signed Impressions: Service Date/Time: Monday, May 15, 2017 09:33 - CONCLUSION: No acute disease. Honorio Neal Jr., MD Chest X-Ray 05/15/17939 Signed Impressions: Service Date/Time: Monday, May 15, 2017 09:33 - CONCLUSION: 1. Left third through ninth rib fractures without pneumothorax. 2. Left apical cap likely related to fluid or blood. Honorio Neal Jr., MD Assessment and Plan Assessment and Plan 1. Bilateral hemo-pneumothoraces status post bilateral chest tube placement 2. Bilateral serial rib fractures and pulmonary contusions 3. Borderline hyperkalemia 4. Leukocytosis -likely in the setting of stress 1. Chest tubes to suction, managed by trauma 2. Supplemental O2 3. Pain control 4. Serial labs 5. Monitor for any decompensation 6. GI and DVT prophylaxis with Nabeel Dumont MD May 15, 2017 14:29
--- NOTE | 2017-05-15 15:20 | MH ---
cc: Brad Love MD DATE OF ADMISSION: 05/15/2017 HISTORY OF PRESENT ILLNESS: This is a patient who was on the roof approximately 12 feet up and fell onto his back. He was brought in as a level 2 trauma, upgraded to a level 1 while in the emergency room due to mechanism. The patient is Occitan speaking. History was obtained through translation. He complains of chest pains. The denied abdominal pains. No paresthesias. PAST MEDICAL HISTORY: Negative. MEDICATIONS: He is on no chronic medications. ALLERGIES: NO KNOWN DRUG ALLERGIES. PHYSICAL EXAMINATION: GENERAL: He is lying on the stretcher in distress secondary to pain. HEENT: Pupils are equal and reactive. NECK: His trachea is midline. CHEST: Positive crepitus. Decreased breath sounds on the left. GASTROINTESTINAL: Soft, nondistended. MUSCULOSKELETAL: No deformities. NEUROLOGIC: Grossly intact. BACK: No step-offs, nontender. RADIOLOGIC IMAGES: CT of the head, no intracranial hemorrhage. CT of the cervical spine, no fracture. CT of the chest, bilateral pneumothoraces, pulmonary contusion, multiple rib fractures. CT of the abdomen and pelvis, no visceral injury. CT of the facial bones, no fracture. CT of thoracic spine, no fracture. CT of the lumbar spine, no fracture. ASSESSMENT: This is a patient status post fall from 12 feet with bilateral pneumothoraces, pulmonary contusions, rib fractures, bilateral chest tubes being placed by emergency room physician. The patient will be managed in [facility]. We will obtain critical care consult and monitor his respiratory status. Provide pain management. Monitor hemodynamics. MD DEANDRE Cote/SALOME , 02:56 PM , 03:18 PM
[2017-05-15] MEDS: METHOCARBAMOL 500 MG TAB PO SCH ×2 (15:55→21:41)
[2017-05-15] MEDS: HYDROmorphone HCL 2 MG TAB PO PRN (18:05)
[2017-05-15 21:00] LABS: AUTOMATED NEUTROPHIL # 11.7 TH/MM3 (1.8-7.7); BASOPHIL % 0.1 % (0.0-2.0); HEMATOCRIT 37.1 % (39.0-51.0); HEMOGLOBIN 12.4 GM/DL (13.0-17.0); LYMPH % 3.3 % (9.0-44.0); LYMPHOCYTE # 0.4 TH/MM3 (1.0-4.8); MEAN CELL VOLUME 90.1 FL (80.0-100.0); MEAN CORPUSCULAR HEMOGLOBIN 30.1 PG (27.0-34.0); MEAN CORPUSCULAR HGB CONC 33.4 % (32.0-36.0); MEAN PLATELET VOLUME 8.2 FL (7.0-11.0); MONOCYTE # 0.8 TH/MM3 (0-0.9); NEUT % 90.6 % (16.0-70.0); PLATELET COUNT 201 TH/MM3 (150-450); RED BLOOD COUNT 4.12 MIL/MM3 (4.50-5.90); RED CELL DISTRIBUTION WIDTH 13.3 % (11.6-17.2); WHITE BLOOD COUNT 12.9 TH/MM3 (4.0-11.0)
[2017-05-15] MEDS ORDERED: DOCUSATE SODIUM 100 MG CAP PO SCH (21:00)
[2017-05-15] MEDS: SODIUM CHLORIDE 0.9% FLUSH 10 ML FLUSH IV FLUSH SCH (21:00)
[2017-05-15 21:45] LABS: BICARBONATE 23.8 MEQ/L (21.0-32.0); CREATININE 0.85 MG/DL (0.60-1.30)
[2017-05-16] VITALS (14 sets, daily range): BP systolic 127–137; BP diastolic 72–85; PULSE 60–72; RESP 19–24; TEMP 97.8–98.8; O2SAT 94–99
[2017-05-16] MEDS: SODIUM CHLOR 0.9% 1000 ML INJ 1,000 ML IV SCH (03:08)
[2017-05-16] MEDS: CHLORHEXIDINE GLUCONATE 2 % 1 PACK (2 CLOTHS) TOP SCH (04:00)
[2017-05-16 05:40] LABS: AUTOMATED NEUTROPHIL # 8.2 TH/MM3 (1.8-7.7); BASOPHIL % 0.1 % (0.0-2.0); HEMATOCRIT 34.1 % (39.0-51.0); HEMOGLOBIN 11.7 GM/DL (13.0-17.0); LYMPH % 6.5 % (9.0-44.0); LYMPHOCYTE # 0.7 TH/MM3 (1.0-4.8); MEAN CELL VOLUME 90.4 FL (80.0-100.0); MEAN CORPUSCULAR HGB CONC 34.3 % (32.0-36.0); MEAN PLATELET VOLUME 8.1 FL (7.0-11.0); MONO % 11.8 % (0.0-8.0); MONOCYTE # 1.2 TH/MM3 (0-0.9); NEUT % 81.6 % (16.0-70.0); PLATELET COUNT 175 TH/MM3 (150-450); RED BLOOD COUNT 3.78 MIL/MM3 (4.50-5.90); RED CELL DISTRIBUTION WIDTH 13.4 % (11.6-17.2)
[2017-05-16] MEDS ORDERED: LACTULOSE SYRUP 20 GM/30 ML CUP PO PRN (05:45)
[2017-05-16 05:56] LABS: ALT (GPT) 41 U/L (12-78); AST (GOT) 52 U/L (15-37); BICARBONATE 22.9 MEQ/L (21.0-32.0); BLOOD UREA NITROGEN 12 MG/DL (7-18); CALCIUM 8.1 MG/DL (8.5-10.1); CHLORIDE 106 MEQ/L (98-107); CREATININE 0.71 MG/DL (0.60-1.30); GLOMERULAR FILTRATION RATE 96 ML/MIN (>89); GLUCOSE,RANDOM 110 MG/DL (74-106); SODIUM (NA) 139 MEQ/L (136-145)
[2017-05-16 05:59] LABS: ALKALINE PHOSPHATASE 61 U/L (45-117); TOTAL BILIRUBIN ADULT 0.6 MG/DL (0.2-1.0); TOTAL PROTEIN 5.8 GM/DL (6.4-8.2)
[2017-05-16] MEDS: REMOVE OLD PATCH-FENTANYL T-DERMAL SCH (06:00)
[2017-05-16] MEDS: fentaNYL 50 MCG/HR PATCH T-DERMAL SCH (06:07)
[2017-05-16] MEDS: METHOCARBAMOL 500 MG TAB PO SCH ×3 (06:07→21:13)
--- NOTE | 2017-05-16 06:30 | RADRPT ---
EXAM DATE/TIME: 05/16/2017 06:03 [facility] COMPARISON: CHEST SINGLE AP, May 15, 2017, 10:36. INDICATIONS : Bi-lateral pneumothorax. Fell of a roof. Short of breath. MEDICAL HISTORY : Pneumothorax. SURGICAL HISTORY : Bi-lateral chest tubes. ENCOUNTER: Subsequent ACUITY: 1 day PAIN SCORE: 10/10 LOCATION: Bilateral chest FINDINGS: A single AP portable expiratory view of the chest was obtained. This demonstrates new dense opacity i n the right upper lobe with elevation of the minor fissure. The right-sided chest tube remains in elena ce with no pneumothorax. Hazy infiltrate is present in the left lung without significant change. The left basilar chest tube remains in place with subtle apparent small left apical pneumothorax multiple left-sided rib fractures are again noted. Subcutaneous emphysema is noted bilaterally right greater then left. CONCLUSION: 1. Apparent subtle small left apical pneumothorax. 2. New opacity in the left right upper lobe with elevation of the minor fissure which could indicate infiltrate and or atelectasis. Cosme Haji MD on May 16, 2017 at 6:24 Board Certified Radiologist. This report was verified electronically.
[2017-05-16] MEDS: SODIUM CHLORIDE 0.9% FLUSH 10 ML FLUSH IV FLUSH SCH ×2 (08:52→21:14)
[2017-05-16] MEDS: DOCUSATE SODIUM 50 MG/SENNA 8.6 MG TAB PO SCH ×2 (08:52→21:13)
[2017-05-16] MEDS: GABAPENTIN 300 MG CAP PO SCH ×3 (08:52→18:00)
[2017-05-16] MEDS: HYDROmorphone HCL 2 MG TAB PO PRN (08:52)
[2017-05-16] MEDS: POLYETHYLENE GLYCOL 17 GM PKG PO SCH (08:52)
[2017-05-16] MEDS: RESP: ALBUTEROL 2.5 MG/IPRATROPIUM 0.5 MG NEB (SCH) NEB ×4 (09:17→19:37)
[2017-05-16] MEDS ORDERED: HYDROmorphone HCL PCA 6 MG/30 ML IV SCH (09:45)
[2017-05-16] MEDS: PCA - TOTAL MG DILAUDID DELIVERED PER SHIFT OTHER SCH ×3 (09:45→21:14)
[2017-05-16] MEDS ORDERED: NALOXONE HCL 0.4 MG/ML AMP IV PUSH PRN (09:45)
[2017-05-16] MEDS: ENOXAPARIN SODIUM 40 MG/0.4 ML SYRINGE SQ SCH (10:53)
[2017-05-16] MEDS: PANTOPRAZOLE SODIUM 40 MG VIAL IVP SCH (10:53)
[2017-05-16] MEDS: ONDANSETRON HCL 4 MG/2 ML VIAL IV PUSH PRN ×2 (13:33→21:21)
--- NOTE | 2017-05-16 15:16 | HHI.CCPN ---
Subjective Brief History 64-pub-[age]fom-old male fell off about 10 feet the roof. Came as priority 2 trauma alert but upgraded to priority 1 due to significance of injuries. On arrival patient is awake and alert complaining about chest pain Patient is resuscitated and worked up according to trauma principles Final diagnosis Bilateral hemo-pneumothoraces Bilateral serial rib fractures Bilateral pulmonary contusions Patient is admitted to ICU will be treated per clinical indices if the pneumothorax becomes bigger we will place second chest tube on the left side 24 Hour Review/Hospital Course 05/16/2017 Patient is awake alert and oriented No signs of trauma to the head No signs of trauma to the neck Neurologically fully intact Hemodynamically intact Bilateral breath sounds in both chest tubes over the diaphragm with left sided tiny pneumothorax Draining sanguinous material and this is going to clear up over the next few days Patient has bilateral pulmonary contusions and these will get worse before they get better which may worsen patient's oxygen exchange in the next few days Abdomen is soft diet as tolerated Renal function preserved Plan continue pain management and observation Chest tubes to remain in place Objective Vital Signs Date Time Temp Pulse Resp B/P (MAP) Pulse Ox O2 Delivery O2 Flow Rate FiO2 05/16/17 12:00 63 05/16/17 12:00 98.8 19 137/72 (93) 99 05/16/17 09:30 Nasal Cannula 3.00 Intake and Output 05/16/17 05/16/17 05/17/17 08:00 16:00 00:00 Intake Total 1720 ml 875 ml Output Total 1254 ml Balance 466 ml 875 ml Result Diagram: 05/16/17 0430 05/16/17 0430 Assessment and Plan Attestation Critical care time 32 minutes Ihsan Miranda MD May 16, 2017 15:16
--- NOTE | 2017-05-16 17:16 | HHI.CCPN ---
Subjective Remarks/Hospital Course 05/15: 41-year-old gentleman, with unremarkable past medical history, no brought into ED as a level 2 trauma after a fall from about 12 feet, graded to level 1. In the emergency room, patient was found to have bilateral pneumothoraces and bilateral rib fractures and possible pulmonary contusion. Bilateral chest tubes were emergency placed. Patient was admitted to the ICU, currently resting in bed, complaining of bilateral chest pain. Shortness of breath is improved. 05/16: No events over the night. Patient currently resting in chair, complains of rib pain and shortness of breath. He is on 2 L nasal cannula saturating 97% . Pain is better compared to yesterday. Both chest tubes to suction with small air leak. Objective Vital Signs Date Time Temp Pulse Resp B/P (MAP) Pulse Ox O2 Delivery O2 Flow Rate FiO2 05/16/17 16:00 97.8 72 24 137/76 (96) 94 05/16/17 09:30 Nasal Cannula 3.00 Intake and Output 05/16/17 05/16/17 05/17/17 08:00 16:00 00:00 Intake Total 1720 ml 875 ml Output Total 1254 ml Balance 466 ml 875 ml Result Diagram: 05/16/17 0430 05/16/17 0430 Imaging Last Impressions Thoracic Spine CT 05/15/17947 Signed Impressions: Service Date/Time: Monday, May 15, 2017 09:58 - CONCLUSION: 1. No thoracic spine fracture. Honorio Neal Jr., MD Maxillofacial CT 05/15/17947 Signed Impressions: Service Date/Time: Monday, May 15, 2017 09:51 - CONCLUSION: Negative for fracture. Moderate subcutaneous emphysema.. Carlos Mas MD FACR Lumbar Spine CT 05/15/17947 Signed Impressions: Service Date/Time: Monday, May 15, 2017 09:58 - CONCLUSION: Negative for acute fracture. Mild degenerative changes. Carlos Mas MD FACBenja Head CT 05/15/17947 Signed Impressions: Service Date/Time: Monday, May 15, 2017 09:51 - CONCLUSION: Negative for acute process. Carlos Mas MD FACBenja Chest CT 05/15/17947 Signed Impressions: Service Date/Time: Monday, May 15, 2017 09:58 - CONCLUSION: 1. Bilateral rib fractures with moderate sized bilateral pneumothoraces. 2. Subcutaneous air overlying the neck and right chest. 3. Small amount of fluid within the left apex. Honorio Neal Jr., MD Cervical Spine CT 05/15/17947 Signed Impressions: Service Date/Time: Monday, May 15, 2017 09:51 - CONCLUSION: Negative for fracture. Extensive subcutaneous emphysema from bilateral pneumothoraces. Carlos Mas MD FACR Abdomen/Pelvis CT 05/15/17947 Signed Impressions: Service Date/Time: Monday, May 15, 2017 09:58 - CONCLUSION: 1. No abdominal visceral injury. 2. Multiple findings along the chest including subcutaneous emphysema, rib fractures, bilateral pneumothoraces, greater on the left. This will be discussed on CT chest. 3. Small incidental enhancing lesion in the liver. Silverio Ruffin MD Pelvis X-Ray 05/15/17939 Signed Impressions: Service Date/Time: Monday, May 15, 2017 09:33 - CONCLUSION: No acute disease. Honorio Neal Jr., MD Chest X-Ray 05/15/17939 Signed Impressions: Service Date/Time: Monday, May 15, 2017 09:33 - CONCLUSION: 1. Left third through ninth rib fractures without pneumothorax. 2. Left apical cap likely related to fluid or blood. Honorio Neal Jr., MD Objective Remarks General - middle-aged gentleman, awake, in mild painful distress HEENT - pupils are equal, reactive, sclerae are anicteric, neck is supple, no rigidity, no JVD, no carotid bruit, no crepitus, MMM CV - regular heart sounds, no murmurs, rubs or gallops Chest - clear, good air entry bilateral, no wheezes Abdomen - soft, non-tender, non-distended, BS present, no hepatomegaly, no splenomegaly Skin - no rashes, no cyanosis Extremities - warm, no edema, + peripheral pulses, no clubbing Neuro -awake, alert, oriented 3, moves all extremities A/P Assessment and Plan 1. Bilateral hemo-pneumothoraces status post bilateral chest tube placement, still with small air leak. Morning chest x-ray reviewed, small left apical pneumothorax 2. Bilateral serial rib fractures and pulmonary contusions 3. Borderline hyperkalemia -resolved 4. Leukocytosis -likely in the setting of stress, resolved 1. Chest tubes to suction, managed by trauma 2. Supplemental O2 3. 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 GI and DVT prophylaxis Patient is at high risk for decompensation. Discussed in detail with patient and family present at bedside. Nabeel Chiu MD May 16, 2017 17:16
[2017-05-16] MEDS: MORPHINE SULFATE 2 MG/ML INJ IV PUSH PRN (20:24)
[2017-05-17] VITALS (16 sets, daily range): BP systolic 120–141; BP diastolic 69–85; PULSE 67–86; RESP 16–23; TEMP 97.7–99; O2SAT 95–100
[2017-05-17] MEDS: CHLORHEXIDINE GLUCONATE 2 % 1 PACK (2 CLOTHS) TOP SCH (03:03)
[2017-05-17] MEDS: ONDANSETRON HCL 4 MG/2 ML VIAL IV PUSH PRN (04:28)
--- NOTE | 2017-05-17 04:38 | RADRPT ---
EXAM DATE/TIME: 05/17/2017 02:19 [facility] COMPARISON: CHEST SINGLE AP, May 16, 2017, 6:03. INDICATIONS : Followup right pneumothorax.. MEDICAL HISTORY : Pneumothorax. SURGICAL HISTORY : Bi-lateral chest tubes. ENCOUNTER: Subsequent ACUITY: 3 days PAIN SCORE: Non-responsive. LOCATION: Bilateral chest FINDINGS: A single AP erect portable view of the chest was obtained and now demonstrates small right apical pne umothorax. The right-sided chest tube remains in place. The pneumothorax measures up to approximately 1.3 cm in greatest diameter. Abnormal opacity remains in the right upper lobe with elevation of the right minor fissure. Multiple left rib fractures are again identified with abnormal opacity throughou t the left lung. The previously noted tiny left apical pneumothorax is no longer visualized. Bilatera l subcutaneous emphysema is again noted right greater than left. Heart size remains mildly prominent. CONCLUSION: 1. The previously noted small left apical pneumothorax no longer visualized. 2. A small right apical pneumothorax is now identified. Right-sided chest tube remains in place. 3. Abnormal opacity remains in the right upper lobe. There is hazy opacity throughout the left lung. Cosme Haji MD on May 17, 2017 at 4:33 Board Certified Radiologist. This report was verified electronically.
[2017-05-17] MEDS: PCA - TOTAL MG DILAUDID DELIVERED PER SHIFT OTHER SCH ×2 (05:32→22:18)
[2017-05-17] MEDS: METHOCARBAMOL 500 MG TAB PO SCH ×3 (05:33→20:08)
[2017-05-17 06:15] LABS: AUTOMATED NEUTROPHIL # 8.4 TH/MM3 (1.8-7.7); BASOPHIL % 0.2 % (0.0-2.0); HEMATOCRIT 32.9 % (39.0-51.0); HEMOGLOBIN 11.1 GM/DL (13.0-17.0); LYMPH % 4.2 % (9.0-44.0); LYMPHOCYTE # 0.4 TH/MM3 (1.0-4.8); MEAN CELL VOLUME 89.8 FL (80.0-100.0); MEAN CORPUSCULAR HEMOGLOBIN 30.2 PG (27.0-34.0); MEAN CORPUSCULAR HGB CONC 33.6 % (32.0-36.0); MEAN PLATELET VOLUME 7.8 FL (7.0-11.0); MONO % 9.1 % (0.0-8.0); MONOCYTE # 0.9 TH/MM3 (0-0.9); NEUT % 86.5 % (16.0-70.0); PLATELET COUNT 168 TH/MM3 (150-450); RED BLOOD COUNT 3.67 MIL/MM3 (4.50-5.90); WHITE BLOOD COUNT 9.7 TH/MM3 (4.0-11.0)
[2017-05-17] MEDS: RESP: ALBUTEROL 2.5 MG/IPRATROPIUM 0.5 MG NEB (SCH) NEB ×4 (07:22→21:05)
[2017-05-17 07:24] LABS: BICARBONATE 26.7 MEQ/L (21.0-32.0); CALCIUM 8.1 MG/DL (8.5-10.1); CREATININE 0.6 MG/DL (0.60-1.30)
[2017-05-17] MEDS: POLYETHYLENE GLYCOL 17 GM PKG PO SCH (08:08)
[2017-05-17] MEDS: DOCUSATE SODIUM 50 MG/SENNA 8.6 MG TAB PO SCH ×2 (08:08→20:08)
[2017-05-17] MEDS: SODIUM CHLORIDE 0.9% FLUSH 10 ML FLUSH IV FLUSH SCH ×2 (08:08→20:10)
[2017-05-17] MEDS: GABAPENTIN 300 MG CAP PO SCH ×3 (08:08→18:19)
[2017-05-17] MEDS: ENOXAPARIN SODIUM 40 MG/0.4 ML SYRINGE SQ SCH (11:02)
[2017-05-17] MEDS: PANTOPRAZOLE SODIUM 40 MG VIAL IVP SCH (11:03)
--- NOTE | 2017-05-17 12:55 | HHI.CCPN ---
Subjective Brief History 70-ol[age]-old male fell off about 10 feet the roof. Came as priority 2 trauma alert but upgraded to priority 1 due to significance of injuries. On arrival patient is awake and alert complaining about chest pain Patient is resuscitated and worked up according to trauma principles Final diagnosis Bilateral hemo-pneumothoraces Bilateral serial rib fractures Bilateral pulmonary contusions Patient is admitted to ICU will be treated per clinical indices if the pneumothorax becomes bigger we will place second chest tube on the left side 24 Hour Review/Hospital Course 05/16/2017 Patient is awake alert and oriented No signs of trauma to the head No signs of trauma to the neck Neurologically fully intact Hemodynamically intact Bilateral breath sounds in both chest tubes over the diaphragm with left sided tiny pneumothorax Draining sanguinous material and this is going to clear up over the next few days Patient has bilateral pulmonary contusions and these will get worse before they get better which may worsen patient's oxygen exchange in the next few days Abdomen is soft diet as tolerated Renal function preserved Plan continue pain management and observation Chest tubes to remain in place 05/17/2017 Patient is awake alert and oriented Left chest is more reggie out at this time I believe patient may have a retained hemothorax considering that the chest tube is over the left lung base rather than posterior sulcus We will repeat CT scan of the chest tomorrow Transfer to floor today Objective Vital Signs Date Time Temp Pulse Resp B/P (MAP) Pulse Ox O2 Delivery O2 Flow Rate FiO2 05/17/17 10:00 80 05/17/17 07:25 96 Nasal Cannula 2.00 05/17/17 07:00 98.5 16 133/69 (90) Intake and Output 05/17/17 05/17/17 05/18/17 08:00 16:00 00:00 Intake Total 360 ml Output Total 810 ml Balance -450 ml Result Diagram: 05/17/1718 05/17/1718 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 Awake alert oriented Hemodynamic/Cardiac Hemodynamically patient remains stable Pulmonary/Respiratory Bilateral breath sounds decreased of the left lung more so than the right lung Both chest tubes are draining serosanguineous material but left side is more reggie out and I believe patient may have a retained hemothorax on the left considering the position of the chest tube We will repeat CT scan of the chest tomorrow Abdomen/GI Nutrition Abdomen soft diet tolerated no trauma to the abdominal organs Renal/I&O Renal function preserved Assessment and Plan Attestation Transfer patient to floor CT of the chest tomorrow Critical care time 32 minutes Ihsan Miranda MD May 17, 2017 12:55
--- NOTE | 2017-05-17 13:54 | HHI.CCPN ---
Subjective Remarks/Hospital Course 05/15: 41-year-old gentleman, with unremarkable past medical history, no brought into ED as a level 2 trauma after a fall from about 12 feet, graded to level 1. In the emergency room, patient was found to have bilateral pneumothoraces and bilateral rib fractures and possible pulmonary contusion. Bilateral chest tubes were emergency placed. Patient was admitted to the ICU, currently resting in bed, complaining of bilateral chest pain. Shortness of breath is improved. 05/16: No events over the night. Patient currently resting in chair, complains of rib pain and shortness of breath. He is on 2 L nasal cannula saturating 97% . Pain is better compared to yesterday. Both chest tubes to suction with small air leak. 05/17: No events over the night. Patient still complaining of chest/rib pain but improved compared to yesterday. Shortness of breath improved as well. He remains on 2 L nasal cannula with O2 sats 96 to 97%. Chest tube output 400 mL' s over the last 24 hours. No fever. Urine output remains adequate. Chest x- ray reviewed, still with right upper lobe atelectasis, small residual right pneumothorax, worsening infiltrate/contusion over the left chest. Objective Vital Signs Date Time Temp Pulse Resp B/P (MAP) Pulse Ox O2 Delivery O2 Flow Rate FiO2 05/17/17 10:00 80 05/17/17 07:25 96 Nasal Cannula 2.00 05/17/17 07:00 98.5 16 133/69 (90) Intake and Output 05/17/17 05/17/17 05/18/17 08:00 16:00 00:00 Intake Total 360 ml Output Total 810 ml Balance -450 ml Result Diagram: 05/17/1751705/17/17517 Imaging Last Impressions Thoracic Spine CT 05/15/17947 Signed Impressions: Service Date/Time: Monday, May 15, 2017 09:58 - CONCLUSION: 1. No thoracic spine fracture. Honorio Neal Jr., MD Maxillofacial CT 05/15/17947 Signed Impressions: Service Date/Time: Monday, May 15, 2017 09:51 - CONCLUSION: Negative for fracture. Moderate subcutaneous emphysema.. Carlos Mas MD FACR Lumbar Spine CT 05/15/17947 Signed Impressions: Service Date/Time: Monday, May 15, 2017 09:58 - CONCLUSION: Negative for acute fracture. Mild degenerative changes. Carlos Mas MD FACR Head CT 05/15/17947 Signed Impressions: Service Date/Time: Monday, May 15, 2017 09:51 - CONCLUSION: Negative for acute process. Carlos Mas MD FACR Chest CT 05/15/17947 Signed Impressions: Service Date/Time: Monday, May 15, 2017 09:58 - CONCLUSION: 1. Bilateral rib fractures with moderate sized bilateral pneumothoraces. 2. Subcutaneous air overlying the neck and right chest. 3. Small amount of fluid within the left apex. Honorio Neal Jr., MD Cervical Spine CT 05/15/17947 Signed Impressions: Service Date/Time: Monday, May 15, 2017 09:51 - CONCLUSION: Negative for fracture. Extensive subcutaneous emphysema from bilateral pneumothoraces. Carlos Mas MD FACR Abdomen/Pelvis CT 05/15/17947 Signed Impressions: Service Date/Time: Monday, May 15, 2017 09:58 - CONCLUSION: 1. No abdominal visceral injury. 2. Multiple findings along the chest including subcutaneous emphysema, rib fractures, bilateral pneumothoraces, greater on the left. This will be discussed on CT chest. 3. Small incidental enhancing lesion in the liver. Silverio Ruffin MD Pelvis X-Ray 05/15/17939 Signed Impressions: Service Date/Time: Monday, May 15, 2017 09:33 - CONCLUSION: No acute disease. Honorio Neal Jr., MD Chest X-Ray 05/15/17939 Signed Impressions: Service Date/Time: Monday, May 15, 2017 09:33 - CONCLUSION: 1. Left third through ninth rib fractures without pneumothorax. 2. Left apical cap likely related to fluid or blood. Honorio Neal Jr., MD Objective Remarks General - middle-aged gentleman, awake, in mild painful distress HEENT - pupils equal, reactive, sclerae anicteric, neck supple, no rigidity, no JVD CV - regular S1 and S2, no murmurs Chest - scattered crackles, no wheezes Abdomen - soft, non-tender, non-distended, BS present Extremities - warm, well-perfused, no edema, + peripheral pulses Neuro - awake, alert, oriented 3, moves all extremities A/P Assessment and Plan 1. Bilateral hemo-pneumothoraces status post bilateral chest tube placement 2. Bilateral serial rib fractures and pulmonary contusions 3. Borderline hyperkalemia -resolved 4. Leukocytosis -likely in the setting of stress, resolved 1. Chest tubes to suction, managed by trauma. Monitor chest tube output 2. Supplemental O2 3. Pain control with dilaudid DIRECTOR OF TEENAGE ACTIVITIES 4. CT chest 5. GI and DVT prophylaxis Patient is at high risk for decompensation. Discussed in detail with patient and family present at bedside. Please call back if additional help is needed. Nabeel Chiu MD May 17, 2017 13:54
[2017-05-17] MEDS: MAGNESIUM HYDROXIDE SUSP 30 ML CUP PO SCH (20:08)
[2017-05-18] VITALS (9 sets, daily range): BP systolic 122–149; BP diastolic 64–88; PULSE 84–101; RESP 17–19; TEMP 98.3–99.3; O2SAT 93–97
[2017-05-18] MEDS: ONDANSETRON HCL 4 MG/2 ML VIAL IV PUSH PRN (02:38)
[2017-05-18] MEDS: CHLORHEXIDINE GLUCONATE 2 % 1 PACK (2 CLOTHS) TOP SCH (04:00)
[2017-05-18] MEDS: METHOCARBAMOL 500 MG TAB PO SCH ×3 (06:15→20:38)
[2017-05-18] MEDS: PCA - TOTAL MG DILAUDID DELIVERED PER SHIFT OTHER SCH (06:19)
[2017-05-18 06:23] LABS: BICARBONATE 28.7 MEQ/L (21.0-32.0); CALCIUM 8.2 MG/DL (8.5-10.1); CREATININE 0.64 MG/DL (0.60-1.30)
--- NOTE | 2017-05-18 06:30 | RADRPT ---
EXAM DATE/TIME: 05/18/2017 05:36 [facility] COMPARISON: CHEST SINGLE AP, May 17, 2017, 2:19. INDICATIONS : Bilateral chest and back pain, follow up pneumothorax and bilateral chest tubes MEDICAL HISTORY : pneumothorax SURGICAL HISTORY : bilateral chest tubes ENCOUNTER: Subsequent ACUITY: 4 - 6 days PAIN SCORE: 10/10 LOCATION: Bilateral chest FINDINGS: A single view of the chest demonstrates bilateral chest tubes. No pneumothorax. Rib fractures again s een. Extensive subcutaneous emphysema bilaterally. Decreasing densities bilaterally. Osseous structu res are intact. CONCLUSION: 1. Improving bilateral parenchymal densities. 2. No pneumothorax. Silverio Ruffin MD on May 18, 2017 at 6:26 Board Certified Radiologist. This report was verified electronically.
[2017-05-18 06:52] LABS: AUTOMATED NEUTROPHIL # 6.2 TH/MM3 (1.8-7.7); BASOPHIL % 0.2 % (0.0-2.0); EOSINOPHIL # 0.1 TH/MM3 (0-0.4); EOSINOPHIL % 1.6 % (0.0-4.0); HEMATOCRIT 32.4 % (39.0-51.0); LYMPH % 7.1 % (9.0-44.0); LYMPHOCYTE # 0.5 TH/MM3 (1.0-4.8); MEAN CELL VOLUME 89.6 FL (80.0-100.0); MEAN CORPUSCULAR HEMOGLOBIN 30.4 PG (27.0-34.0); MEAN CORPUSCULAR HGB CONC 33.9 % (32.0-36.0); MONO % 10.6 % (0.0-8.0); MONOCYTE # 0.8 TH/MM3 (0-0.9); NEUT % 80.5 % (16.0-70.0); PLATELET COUNT 184 TH/MM3 (150-450); RED BLOOD COUNT 3.62 MIL/MM3 (4.50-5.90); RED CELL DISTRIBUTION WIDTH 12.9 % (11.6-17.2); WHITE BLOOD COUNT 7.7 TH/MM3 (4.0-11.0)
[2017-05-18] MEDS: RESP: ALBUTEROL 2.5 MG/IPRATROPIUM 0.5 MG NEB (SCH) NEB ×4 (07:48→19:01)
[2017-05-18] MEDS: GABAPENTIN 300 MG CAP PO SCH ×3 (09:11→18:38)
[2017-05-18] MEDS: DOCUSATE SODIUM 50 MG/SENNA 8.6 MG TAB PO SCH ×2 (09:11→20:38)
[2017-05-18] MEDS: POLYETHYLENE GLYCOL 17 GM PKG PO SCH ×2 (09:11→12:21)
[2017-05-18] MEDS: MAGNESIUM HYDROXIDE SUSP 30 ML CUP PO SCH ×3 (09:11→20:39)
[2017-05-18] MEDS ORDERED: IOHEXOL 350 MG/ML 10 ML VIAL (for RAD DIAG) IVCONTRAST ONE (09:42)
--- NOTE | 2017-05-18 09:50 | RADRPT ---
EXAM DATE/TIME: 05/18/2017 09:26 [facility] COMPARISON: CHEST SINGLE AP, May 18, 2017, 5:36. CT THORAX W CONTRAST, May 15, 2017, 9:58. INDICATIONS : Trauma patient with chest and left shoulder pain. Evaluate for possible subluxation or subcapital fra cture. RADIATION DOSE: ; Reconstructed from previous dataset, no dose MEDICAL HISTORY : None SURGICAL HISTORY : None. ENCOUNTER: Initial ACUITY: 1 day PAIN SCALE: 8/10 LOCATION: Left shoulder TECHNIQUE: Volumetric scanning of the shoulder was performed. Using automated exposure control and adjustment o f the mA and/or kV according to patient size, radiation dose was kept as low as reasonably achievable to obtain optimal diagnostic quality images. DICOM format image data is available electronically fo r review and comparison. FINDINGS: The visualized portions of left humerus are intact. The glenohumeral joint and acromioclavicular joints are intact and are congruent. The scapula and left clavicle are intact. Multiple left rib fractures are again visualized extensive subcutaneous emphysema. There is a le ft-sided chest tube again noted and no significant residual pneumothorax. CONCLUSION: The left shoulder is intact. Cosme Haji MD on May 18, 2017 at 9:43 Board Certified Radiologist. This report was verified electronically.
--- NOTE | 2017-05-18 09:55 | RADRPT ---
EXAM DATE/TIME: 05/18/2017 09:26 [facility] COMPARISON: CT THORAX W CONTRAST, May 15, 2017, 9:58. INDICATIONS : Trauma, possible retained hemothorax. IV CONTRAST: 69 cc Omnipaque 350 (iohexol) IV RADIATION DOSE: 18.09 CTDIvol (mGy) MEDICAL HISTORY : None SURGICAL HISTORY : None. ENCOUNTER: Initial ACUITY: 1 day PAIN SCALE: 8/10 LOCATION: Left chest TECHNIQUE: Volumetric scanning of the chest was performed. Using automated exposure control and adjustment of t he mA and/or kV according to patient size, radiation dose was kept as low as reasonably achievable to obtain optimal diagnostic quality images. DICOM format image data is available electronically for review and comparison. Follow-up recommendations for detected pulmonary nodules are based at a minimum on nodule size and pa tient risk factors according to Fleischner Society Guidelines. FINDINGS: LUNGS: Bilateral chest tubes are noted in place. Small residual anterior pneumothoraces are noted bilaterall y. Consolidating air space disease and/or contusion are noted in the right upper lobe and left lower lobe. PLEURA: There are no large loculated pleural fluid accumulations or evidence of persistent significant hemoth orax. MEDIASTINUM: Concentric wall thickening is noted of the trachea at the thoracic inlet. There is no significant com promise of the airway. Fairly extensive mediastinal emphysema is evident. There is pericardial emphysema with air surro unding the heart. The vascular structures are intact. There is no evidence of intimal injury or disse ction. Mild superior mediastinal hemorrhage is again noted. There's been no significant progression o r change since the earlier exam. The heart is stable in appearance. AXILLAE: Extensive subcutaneous emphysema seen throughout the right axilla. SKELETAL: Multiple left-sided posterior rib fractures extending from the fourth and ninth ribs are noted. Addit ional fractures are seen along the right side of the manubrium and sternum involving the upper left r ib cage. There are displaced fractures seen involving the second and third ribs anteriorly. MISCELLANEOUS: Increasing subcutaneous emphysema is seen throughout the anterior chest, right and left chest wall an d neck. CONCLUSION: 1. Persistent small bilateral pneumothoraces following chest tube placement. 2. No evidence of large loculated fluid collections or hemothorax. 3. Multiple rib fractures 4. Increasing subcutaneous emphysema and mediastinal emphysema. 5. Consolidating airspace disease bilaterally within the lungs Guru Johnson, MD on May 18, 2017 at 9:42 Board Certified Radiologist. This report was verified electronically.
[2017-05-18] MEDS: SODIUM CHLORIDE 0.9% FLUSH 10 ML FLUSH IV FLUSH SCH ×2 (09:58→20:39)
[2017-05-18] MEDS: ENOXAPARIN SODIUM 40 MG/0.4 ML SYRINGE SQ SCH (12:21)
[2017-05-18] MEDS: PANTOPRAZOLE SODIUM 40 MG VIAL IVP SCH (12:21)
[2017-05-18] MEDS: LACTULOSE SYRUP 20 GM/30 ML CUP PO SCH (12:21)
--- NOTE | 2017-05-18 13:13 | HHI.PR ---
Subjective Subjective Notes PTD: 3 Patient lying in bed. No distress noted. Patient complains of pain to left chest. Objective Vitals/I&O Vital Signs Date Time Temp Pulse Resp B/P (MAP) Pulse Ox O2 Delivery O2 Flow Rate FiO2 05/18/17 11:55 98.9 101 18 139/83 (101) 94 05/18/17 08:01 Nasal Cannula 3.00 Labs Laboratory Tests Test 05/18/17 04:05 White Blood Count 7.7 Red Blood Count 3.62 Hemoglobin 11.0 Hematocrit 32.4 Mean Corpuscular Volume 89.6 Mean Corpuscular Hemoglobin 30.4 Mean Corpuscular Hemoglobin Concent 33.9 Red Cell Distribution Width 12.9 Platelet Count 184 Mean Platelet Volume 8.0 Neutrophils (%) (Auto) 80.5 Lymphocytes (%) (Auto) 7.1 Monocytes (%) (Auto) 10.6 Eosinophils (%) (Auto) 1.6 Basophils (%) (Auto) 0.2 Neutrophils # (Auto) 6.2 Lymphocytes # (Auto) 0.5 Monocytes # (Auto) 0.8 Eosinophils # (Auto) 0.1 Basophils # (Auto) 0.0 CBC Comment DIFF FINAL Differential Comment Blood Urea Nitrogen 11 Creatinine 0.64 Random Glucose 100 Calcium Level 8.2 Sodium Level 133 Potassium Level 3.6 Chloride Level 96 Carbon Dioxide Level 28.7 Anion Gap 8 Estimat Glomerular Filtration Rate 108 Radiology Last 48 hours Impressions Chest X-Ray 05/17/17 0600 Signed Impressions: Service Date/Time: Wednesday, May 17, 2017 02:19 - CONCLUSION: 1. The previously noted small left apical pneumothorax no longer visualized. 2. A small right apical pneumothorax is now identified. Right-sided chest tube remains in place. 3. Abnormal opacity remains in the right upper lobe. There is hazy opacity throughout the left lung. Cosme Haji MD Narrative Exam GENERAL: This is a 38-romario year old male lying in bed. No distress noted. SKIN: Warm and dry. HEAD: Atraumatic. Normocephalic. EYES: PERRLA ENT: No nasal bleeding or discharge. Mucous membranes pink and moist. NECK: Trachea midline. No JVD. CARDIOVASCULAR: Regular rate and rhythm. RESPIRATORY: No accessory muscle use. Lungs are clear to auscultation. Breath sounds equal bilaterally. No distress or dyspnea. Right lateral chest tube in place to Pleur-evac drainage system to 20 cm suction. Dressing CDI. No air leak noted. Left lateral chest tube in place to Pleur-evac drainage system 20 cm suction. Dressing CDI. No air leak noted. Both chest tubes with red drainage noted. GASTROINTESTINAL: BS + x 4 quads. Abdomen soft, non-tender, nondistended. MUSCULOSKELETAL: Extremities without cyanosis, or edema. + peripheral pulses x 4 extremities. Warm with good capillary refill and sensation. MAEW. NEUROLOGICAL: Awake and alert. Normal speech and pattern. A/P Problem List: (1) Bilateral pneumothoraces ICD Codes: J93.9 - Pneumothorax, unspecified Status: Acute Assessment and Plan [place]: This is a 38-romario year old male who fell off a roof approximately 20 feet and landed on his back. Questionable LOC. INJURIES: LEFT rib fxs ( 1-10) ? LEFT JORGE RIGHT rib fxs (1,2) BILAT PTX BILAT pulmonary contusions Incidental liver lesion PMHx: Procedures: 05/15: BILAT CT placement Consults: Case management. Diet: Regular diet. Tolerating po diet. Encourage good po intake with each meal. Pulmonary: Encourage good pulmonary toileting. IS and acapella at bedside and pt encouraged to use. Rationale for use explained to patient, and verbalized understanding. EZpap with nebs. Bilateral chest tubes in place each to their own Pleur-evac to 20 cm suction. Both dressing CDI. RIGHT CT output - 102 ml / [address] output = 290 ml / 24 hrs. Chest X ray improving. No PTX seen. Therefore, decrease chest tubes to waterseal. Follow-up chest x-ray in the morning PAIN Management: DC Dilaudid SAP PP CONSULTANT. Percocet 5-10mg q 4h. Morphine 3mg q3h, Robaxin 500 mg q 8h. Neurontin 300 TID. Fentanyl patch 50mcg, Activity: OOB. PT ordered GI prophylaxis: IV Protonix Bowel regimen: Christiane-colace, MOM. Miralax. Lactulose. LBM: 0 DVT prophylaxis: Mechanical VTE with SCDs. Chemical management with Lovenox 40 mg QD SQ. DC Planning: Case management consulted for assistance with final discharge disposition. Emotional support provided to patient and family at bedside and plan of care discussed. Discussed with RN at bedside. Discussed pt condition and plan of care with collaborating trauma surgeon. Patient is hemodynamically stable and being managed on the med/surg floor. The trauma team will round each day, and evaluate plan of care on a daily basis. LEFT rib fxs ( 1-10) ? LEFT JORGE RIGHT rib fxs (1,2) BILAT PTX BILAT pulmonary contusions O2 as needed Supportive care Aggressive pulmonary toileting Chest x-ray every day while chest tubes in place Chest x-ray improving. No PTX noted. Bilateral chest tubes in place each to their own Pleur-evac drainage system. RIGHT CT output = 102 ml / [address] output = 290 ml / 24 hrs. Decrease both chest tubes to waterseal Pain management PT and OT ordered Encourage out of bed Yakelin Martinez May 18, 2017 13:13
[2017-05-18] MEDS: MORPHINE SULFATE 2 MG/ML INJ IV PUSH PRN (15:28)
[2017-05-18] MEDS: oxyCODONE/ACETAMINOPHEN 10 MG/325 MG TAB PO PRN ×2 (18:38→23:15)
[2017-05-19] VITALS (9 sets, daily range): BP systolic 116–136; BP diastolic 66–78; PULSE 68–82; RESP 17–19; TEMP 97.3–99; O2SAT 92–98
[2017-05-19] MEDS: METHOCARBAMOL 500 MG TAB PO SCH ×3 (05:38→20:41)
[2017-05-19] MEDS: REMOVE OLD PATCH-FENTANYL T-DERMAL SCH ×2 (05:39→14:29)
[2017-05-19] MEDS: oxyCODONE/ACETAMINOPHEN 10 MG/325 MG TAB PO PRN ×2 (05:39→10:00)
[2017-05-19] MEDS: fentaNYL 50 MCG/HR PATCH T-DERMAL SCH (05:40)
[2017-05-19 05:56] LABS: BASOPHIL % 0.5 % (0.0-2.0); EOSINOPHIL # 0.2 TH/MM3 (0-0.4); EOSINOPHIL % 2.8 % (0.0-4.0); HEMATOCRIT 32.3 % (39.0-51.0); LYMPH % 10.2 % (9.0-44.0); LYMPHOCYTE # 0.7 TH/MM3 (1.0-4.8); MEAN CELL VOLUME 90.2 FL (80.0-100.0); MEAN CORPUSCULAR HEMOGLOBIN 30.9 PG (27.0-34.0); MEAN CORPUSCULAR HGB CONC 34.2 % (32.0-36.0); MEAN PLATELET VOLUME 7.6 FL (7.0-11.0); MONO % 10.7 % (0.0-8.0); MONOCYTE # 0.7 TH/MM3 (0-0.9); NEUT % 75.8 % (16.0-70.0); PLATELET COUNT 227 TH/MM3 (150-450); RED BLOOD COUNT 3.58 MIL/MM3 (4.50-5.90); RED CELL DISTRIBUTION WIDTH 13.1 % (11.6-17.2); WHITE BLOOD COUNT 6.6 TH/MM3 (4.0-11.0)
--- NOTE | 2017-05-19 06:33 | RADRPT ---
EXAM DATE/TIME: 05/19/2017 06:01 [facility] COMPARISON: CHEST SINGLE AP, May 18, 2017, 5:36. INDICATIONS : Short of breath, evaluate bilateral chest tubes MEDICAL HISTORY : pneumothorax SURGICAL HISTORY : chest tubes ENCOUNTER: Subsequent ACUITY: 4 - 6 days PAIN SCORE: 7/10 LOCATION: Bilateral chest FINDINGS: A single view of the chest demonstrates right-sided chest tube without definite pneumothorax. Left-si ded chest tube has been pulled out and external to the thoracic cage. No pneumothorax the left. Scatt ered parenchymal densities. Extensive subcutaneous emphysema. CONCLUSION: 1. Left-sided chest tube is external to the thoracic cage in the soft tissues. 2. Right-sided chest tube without pneumothorax. Silverio Ruffin MD on May 19, 2017 at 6:29 Board Certified Radiologist. This report was verified electronically.
[2017-05-19 06:37] LABS: BICARBONATE 30.4 MEQ/L (21.0-32.0); CALCIUM 8.1 MG/DL (8.5-10.1); CREATININE 0.72 MG/DL (0.60-1.30)
[2017-05-19] MEDS: GABAPENTIN 300 MG CAP PO SCH ×3 (07:51→17:38)
[2017-05-19] MEDS: SODIUM CHLORIDE 0.9% FLUSH 10 ML FLUSH IV FLUSH SCH ×2 (07:51→20:43)
[2017-05-19] MEDS: LACTULOSE SYRUP 20 GM/30 ML CUP PO SCH (07:51)
[2017-05-19] MEDS: MAGNESIUM HYDROXIDE SUSP 30 ML CUP PO SCH ×2 (07:51→20:43)
[2017-05-19] MEDS: RESP: ALBUTEROL 2.5 MG/IPRATROPIUM 0.5 MG NEB (SCH) NEB ×4 (09:00→20:46)
[2017-05-19] MEDS: PANTOPRAZOLE SODIUM 40 MG VIAL IVP SCH (10:00)
[2017-05-19] MEDS: ENOXAPARIN SODIUM 40 MG/0.4 ML SYRINGE SQ SCH (10:00)
[2017-05-19] MEDS: DOCUSATE SODIUM 50 MG/SENNA 8.6 MG TAB PO SCH ×2 (10:00→20:43)
--- NOTE | 2017-05-19 13:20 | HHI.PR ---
Subjective Subjective Notes PTD: 4 Pt lying in bed,. No distress noted. Pt still c/o LEFT chest pain. ([employer] employee at bedside to assist with interpreting) Objective Vitals/I&O Vital Signs Date Time Temp Pulse Resp B/P (MAP) Pulse Ox O2 Delivery O2 Flow Rate FiO2 05/19/17 12:00 97.9 82 17 127/72 (90) 95 05/19/17 09:01 Nasal Cannula 2.00 Labs Laboratory Tests Test 05/19/17 04:26 White Blood Count 6.6 Red Blood Count 3.58 Hemoglobin 11.0 Hematocrit 32.3 Mean Corpuscular Volume 90.2 Mean Corpuscular Hemoglobin 30.9 Mean Corpuscular Hemoglobin Concent 34.2 Red Cell Distribution Width 13.1 Platelet Count 227 Mean Platelet Volume 7.6 Neutrophils (%) (Auto) 75.8 Lymphocytes (%) (Auto) 10.2 Monocytes (%) (Auto) 10.7 Eosinophils (%) (Auto) 2.8 Basophils (%) (Auto) 0.5 Neutrophils # (Auto) 5.0 Lymphocytes # (Auto) 0.7 Monocytes # (Auto) 0.7 Eosinophils # (Auto) 0.2 Basophils # (Auto) 0.0 CBC Comment DIFF FINAL Differential Comment Blood Urea Nitrogen 12 Creatinine 0.72 Random Glucose 115 Calcium Level 8.1 Sodium Level 134 Potassium Level 4.7 Chloride Level 97 Carbon Dioxide Level 30.4 Anion Gap 7 Estimat Glomerular Filtration Rate 94 Radiology Last 24 hours Impressions Chest X-Ray 05/19/17 0600 Signed Impressions: Service Date/Time: Friday, May 19, 2017 06:01 - CONCLUSION: 1. Left-sided chest tube is external to the thoracic cage in the soft tissues. 2. Right- sided chest tube without pneumothorax. Silverio Ruffin MD Narrative Exam GENERAL: This is a 38-romario year old male lying in bed. No distress noted. SKIN: Warm and dry. HEAD: Atraumatic. Normocephalic. EYES: PERRLA ENT: No nasal bleeding or discharge. Mucous membranes pink and moist. NECK: Trachea midline. No JVD. CARDIOVASCULAR: Regular rate and rhythm. RESPIRATORY: No accessory muscle use. Lungs are clear to auscultation. Breath sounds equal bilaterally. No distress or dyspnea. Right lateral chest tube in place to Pleur-evac drainage system to water seal. Dressing CDI. No air leak noted. Left lateral chest tube in place to Pleur-evac drainage system water seal. Dressing CDI. No air leak noted. Both chest tubes with red drainage noted. GASTROINTESTINAL: BS + x 4 quads. Abdomen soft, non-tender, nondistended. MUSCULOSKELETAL: Extremities without cyanosis, or edema. + peripheral pulses x 4 extremities. Warm with good capillary refill and sensation. MAEW. NEUROLOGICAL: Awake and alert. Normal speech and pattern. A/P Problem List: (1) Bilateral pneumothoraces ICD Codes: J93.9 - Pneumothorax, unspecified Status: Acute Assessment and Plan [place]: This is a 38-rom[age] year old male who fell off a roof approximately 20 feet and landed on his back. Questionable LOC. INJURIES: LEFT rib fxs ( 1-10) ? LEFT JORGE RIGHT rib fxs (1,2) BILAT PTX BILAT pulmonary contusions Incidental liver lesion PMHx: Procedures: 05/15: BILAT CT placement Consults: Case management. Diet: Regular diet. Tolerating po diet. Encourage good po intake with each meal. Pulmonary: Encourage good pulmonary toileting. IS and acapella at bedside and pt encouraged to use. Rationale for use explained to patient, and verbalized understanding. EZpap with nebs. Bilateral chest tubes in place each to their own Pleur-evac to water seal. Both dressing CDI. RIGHT CT output - 400 ml / [address] output = ~25 ml / 24 hrs. Chest X ray shows the RIGHT CT without PTX, however LEFT CT is external to the thorasic rib cage with no PTX. Therefore LEFT lateral CT removed at bedside without incident. Vaseline gauze and 4 x 4 dressing applied and secured with Elastoplast tape. Follow-up chest x-ray in the morning PAIN Management: DC Percocet - pt becomes very dizzy. Changed to [place] 5-7.5 mg q 4h. Morphine 3mg q3h, Robaxin 500 mg q 8h. Neurontin 300 TID. DC Fentanyl patch as pt became very dizzy with new application last night. Added Toradol 15 mg every 6 hours 24 hours. Lidoderm patch. Activity: OOB. PT ordered GI prophylaxis: IV Protonix Bowel regimen: Christiane-colace, MOM. Miralax. Lactulose. LBM: 05/19. DVT prophylaxis: Mechanical VTE with SCDs. Chemical management with Lovenox 40 mg QD SQ. DC Planning: Case management consulted for assistance with final discharge disposition. Emotional support provided to patient and family at bedside and plan of care discussed. Discussed with RN at bedside. Discussed pt condition and plan of care with collaborating trauma surgeon. Patient is hemodynamically stable and being managed on the med/surg floor. The trauma team will round each day, and evaluate plan of care on a daily basis. LEFT rib fxs ( 1-10) ? LEFT JORGE RIGHT rib fxs (1,2) BILAT PTX BILAT pulmonary contusions O2 as needed Supportive care Aggressive pulmonary toileting Chest x-ray every day while chest tubes in place Chest X ray shows the RIGHT CT without PTX, however LEFT CT is external to the thorasic rib cage with no PTX. Therefore LEFT lateral CT removed at bedside without incident. Bilateral chest tubes in place each to their own Pleur-evac drainage system. RIGHT CT output = 400 ml / [address] output = ~25 ml / [address] remains to 20 cm suction Pain management PT and OT ordered Encourage out of bed Remarks Patient seen and examined with the nurse practitioner, left-sided chest tube is out on the chest x-ray so we will also remove it, continue pain control, DVT prophylaxis Yakelin Martinez May 19, 2017 13:20 Thao Ma MD May 23, 2017 15:01
[2017-05-19] MEDS: KETOROLAC TROMETHAMINE 30 MG/ML (IVP) VIAL IV PUSH SCH ×2 (14:29→20:40)
[2017-05-19] MEDS: LIDOCAINE HCL 5% PATCH T-DERMAL SCH (14:29)
[2017-05-19] MEDS: ACETAMINOPHEN/HYDROcodone 325 MG/5 MG TAB PO PRN (17:38)
[2017-05-19] MEDS: REMOVE OLD LIDOCAINE PATCH T-DERMAL SCH (20:43)
[2017-05-20] VITALS (7 sets, daily range): BP systolic 120–157; BP diastolic 65–89; PULSE 79–91; RESP 17–18; TEMP 98–98.7; O2SAT 93–98
[2017-05-20] MEDS: KETOROLAC TROMETHAMINE 30 MG/ML (IVP) VIAL IV PUSH SCH ×3 (01:09→15:39)
[2017-05-20] MEDS: ACETAMINOPHEN/HYDROcodone 325 MG/5 MG TAB PO PRN ×4 (01:09→17:09)
[2017-05-20] MEDS: DOCUSATE SODIUM 50 MG/SENNA 8.6 MG TAB PO SCH ×2 (02:40→08:37)
[2017-05-20] MEDS: METHOCARBAMOL 500 MG TAB PO SCH ×3 (05:46→20:42)
--- NOTE | 2017-05-20 06:22 | RADRPT ---
EXAM DATE/TIME: 05/20/2017 05:40 [facility] COMPARISON: CHEST SINGLE AP, May 19, 2017, 6:01. INDICATIONS : Shortness of breath. MEDICAL HISTORY : None. SURGICAL HISTORY : None. ENCOUNTER: Subsequent ACUITY: 4 - 6 days PAIN SCORE: 2/10 LOCATION: Bilateral chest FINDINGS: A single view of the chest demonstrates right-sided chest tube without pneumothorax. No left-sided pn eumothorax. Scattered parenchymal densities, improved from previous study. Cardiomegaly. Extensive phelan bcutaneous emphysema bilaterally. Rib fractures. CONCLUSION: Decreasing lung densities. No pneumothorax. Silverio Ruffin MD on May 20, 2017 at 6:19 Board Certified Radiologist. This report was verified electronically.
[2017-05-20] MEDS: RESP: ALBUTEROL 2.5 MG/IPRATROPIUM 0.5 MG NEB (SCH) NEB (07:37)
[2017-05-20] MEDS: LIDOCAINE HCL 5% PATCH T-DERMAL SCH (08:37)
[2017-05-20] MEDS: GABAPENTIN 300 MG CAP PO SCH ×3 (08:37→17:09)
[2017-05-20] MEDS: SODIUM CHLORIDE 0.9% FLUSH 10 ML FLUSH IV FLUSH SCH ×2 (08:50→20:42)
[2017-05-20] MEDS: LACTULOSE SYRUP 20 GM/30 ML CUP PO SCH (09:00)
[2017-05-20] MEDS: POLYETHYLENE GLYCOL 17 GM PKG PO SCH (09:00)
[2017-05-20] MEDS: MAGNESIUM HYDROXIDE SUSP 30 ML CUP PO SCH ×2 (09:00→20:40)
[2017-05-20] MEDS: ENOXAPARIN SODIUM 40 MG/0.4 ML SYRINGE SQ SCH (11:50)
[2017-05-20] MEDS: PANTOPRAZOLE SODIUM 40 MG VIAL IVP SCH (11:50)
--- NOTE | 2017-05-20 14:01 | HHI.PR ---
Subjective Subjective Notes PTD: 5 Patient lying in bed. No distress noted. Patient complains of pain in his left chest. He says it hurts when he sits up, but it does not hurt when he is just laying in bed, or even when he is walking. Patient observed walking in the hallway later in the afternoon with physical therapy. Objective Vitals/I&O Vital Signs Date Time Temp Pulse Resp B/P (MAP) Pulse Ox O2 Delivery O2 Flow Rate FiO2 05/20/17 12:00 98.1 91 18 140/65 (90) 96 05/20/17 07:39 Nasal Cannula 2.00 Radiology Last 24 hours Impressions Chest X-Ray 05/20/17 0600 Signed Impressions: Service Date/Time: Thursday, May 20, 2017 05:40 - CONCLUSION: Decreasing lung densities. No pneumothorax. Silverio Ruffin MD Narrative Exam GENERAL: This is a 38-rom[age] year old male lying in bed. No distress noted. SKIN: Warm and dry. HEAD: Atraumatic. Normocephalic. EYES: PERRLA ENT: No nasal bleeding or discharge. Mucous membranes pink and moist. NECK: Trachea midline. No JVD. CARDIOVASCULAR: Regular rate and rhythm. RESPIRATORY: No accessory muscle use. Lungs are clear to auscultation. Breath sounds equal bilaterally. No distress or dyspnea. Right lateral chest tube in place to Pleur-evac drainage system to water seal. Dressing CDI. No air leak noted. CT with thin red drainage noted. GASTROINTESTINAL: BS + x 4 quads. Abdomen soft, non-tender, nondistended. MUSCULOSKELETAL: Extremities without cyanosis, or edema. + peripheral pulses x 4 extremities. Warm with good capillary refill and sensation. MAEW. NEUROLOGICAL: Awake and alert. Normal speech and pattern. A/P Problem List: (1) Bilateral pneumothoraces ICD Codes: J93.9 - Pneumothorax, unspecified Status: Acute Assessment and Plan [place]: This is a 38-rom[age] year old male who fell off a roof approximately 20 feet and landed on his back. Questionable LOC. INJURIES: LEFT rib fxs ( 1-10) ? LEFT JORGE RIGHT rib fxs (1,2) BILAT PTX BILAT pulmonary contusions Incidental liver lesion PMHx: Procedures: 05/15: BILAT CT placement 05/19: L CT mostly out = removed at bedside. Consults: Case management. Diet: Regular diet. Tolerating po diet. Encourage good po intake with each meal. Pulmonary: Encourage good pulmonary toileting. IS and acapella at bedside and pt encouraged to use. Rationale for use explained to patient, and verbalized understanding. EZpap with nebs. Right lateral chest tube in place to Pleur-evac drainage system to water seal. Thin red drainage noted. RIGHT CT output = 400 ml / 24 hrs. Chest x-ray shows no PTX. Follow-up chest x-ray in the morning PAIN Management: [place]o 5-7.5 mg q 4h. Morphine 3mg q3h, Robaxin 500 mg q 8h. Neurontin 300 TID. Toradol 15 mg every 6 hours 24 hours. Lidoderm patch. Activity: OOB. PT ordered GI prophylaxis: IV Protonix Bowel regimen: Christiane-colace, MOM. Miralax. Lactulose. LBM: 05/19. DVT prophylaxis: Mechanical VTE with SCDs. Chemical management with Lovenox 40 mg QD SQ. DC Planning: Case management consulted for assistance with final discharge disposition. Emotional support provided to patient and family at bedside and plan of care discussed. Discussed with RN at bedside. Discussed pt condition and plan of care with collaborating trauma surgeon. Patient is hemodynamically stable and being managed on the med/surg floor. The trauma team will round each day, and evaluate plan of care on a daily basis. LEFT rib fxs ( 1-10) ? LEFT JORGE RIGHT rib fxs (1,2) BILAT PTX BILAT pulmonary contusions O2 as needed Supportive care Aggressive pulmonary toileting Chest x-ray every day while chest tube in place Right lateral chest tube in place to Pleur-evac drainage system to water seal. RIGHT CT output = 400 ml / 24 hrs. Pain management PT and OT ordered Encourage out of bed Remarks seen and examined with ASSET MANAGEMENT COORDINATOR,agree with assessment and plan-continue left CT to Yakelin Dunlap May 20, 2017 14:01 Thao Ma MD May 23, 2017 15:49
[2017-05-20] MEDS: REMOVE OLD LIDOCAINE PATCH T-DERMAL SCH (20:40)
[2017-05-21] VITALS (7 sets, daily range): BP systolic 118–138; BP diastolic 66–79; PULSE 73–87; RESP 16–18; TEMP 97.6–98.5; O2SAT 92–99
[2017-05-21] MEDS: ACETAMINOPHEN/HYDROcodone 325 MG/5 MG TAB PO PRN ×4 (04:12→14:36)
[2017-05-21] MEDS: METHOCARBAMOL 500 MG TAB PO SCH ×3 (05:55→21:12)
[2017-05-21] MEDS: DOCUSATE SODIUM 50 MG/SENNA 8.6 MG TAB PO SCH ×2 (07:58→21:02)
[2017-05-21] MEDS: GABAPENTIN 300 MG CAP PO SCH ×3 (07:58→18:11)
[2017-05-21] MEDS: LIDOCAINE HCL 5% PATCH T-DERMAL SCH (07:58)
[2017-05-21] MEDS: LACTULOSE SYRUP 20 GM/30 ML CUP PO SCH (08:05)
[2017-05-21] MEDS: MAGNESIUM HYDROXIDE SUSP 30 ML CUP PO SCH ×2 (08:05→21:02)
[2017-05-21] MEDS: SODIUM CHLORIDE 0.9% FLUSH 10 ML FLUSH IV FLUSH SCH ×2 (08:05→21:03)
[2017-05-21] MEDS: POLYETHYLENE GLYCOL 17 GM PKG PO SCH (08:06)
[2017-05-21] MEDS: ENOXAPARIN SODIUM 40 MG/0.4 ML SYRINGE SQ SCH (11:32)
[2017-05-21] MEDS: PANTOPRAZOLE SODIUM 40 MG VIAL IVP SCH (11:32)
--- NOTE | 2017-05-21 13:14 | RADRPT ---
EXAM DATE/TIME: 05/21/2017 12:52 [facility] COMPARISON: CHEST SINGLE AP, May 20, 2017, 5:40. INDICATIONS : Short of breath, evaluate chest tube on right side MEDICAL HISTORY : pneumothorax SURGICAL HISTORY : chest tube ENCOUNTER: Subsequent ACUITY: 4 - 6 days PAIN SCORE: 3/10 LOCATION: Bilateral chest FINDINGS: The right-sided chest tube has been pulled back. It appears the side-port is in the chest wall and th e tip may be barely in the pleural space. There is an apical pneumothorax with 1.6 cm of separation. There is subcutaneous emphysema throughout the chest wall. There is an infiltrate in the left lung ba se. No significant change in the appearance of the left lung. CONCLUSION: 1. The right chest tube has been pulled back and is barely in the right pleural space. 2. Right apical pneumothorax with 1.6 cm of separation. Joseph Morgan MD on May 21, 2017 at 13:10 Board Certified Radiologist. This report was verified electronically.
--- NOTE | 2017-05-21 16:04 | HHI.PR ---
Subjective Subjective Notes Denies SOB Ambulating halls No complaints Objective Vitals/I&O Vital Signs Date Time Temp Pulse Resp B/P (MAP) Pulse Ox O2 Delivery O2 Flow Rate FiO2 05/21/17 12:32 17 05/21/17 12:00 97.6 87 138/79 (98) 97 05/21/17 07:50 Nasal Cannula 3.00 Labs Laboratory Tests Test 05/15/17 09:40 05/16/17 04:30 05/19/17 04:26 Bedside Hemoglobin 15.6 G/DL Bedside Hematocrit 46.0 % Prothrombin Time 10.2 SEC Prothromb Time International Ratio 1.0 RATIO Activated Partial Thromboplast Time 22.9 SEC Bedside Sodium 139 MMOL/L Bedside Potassium 5.1 MMOL/L Bedside Chloride 101 MMOL/L Bedside Blood Urea Nitrogen 22 MG/DL Bedside Creatinine 0.9 MG/DL Bedside Glucose 155 MG/DL Blood Urea Nitrogen 12 MG/DL 12 MG/DL Creatinine 0.71 MG/DL 0.72 MG/DL Random Glucose 110 MG/DL 115 MG/DL Total Protein 5.8 GM/DL Albumin 3.0 GM/DL Calcium Level 8.1 MG/DL 8.1 MG/DL Alkaline Phosphatase 61 U/L Aspartate Amino Transf (AST/SGOT) 52 U/L Alanine Aminotransferase (ALT/SGPT) 41 U/L Total Bilirubin 0.6 MG/DL Sodium Level 139 MEQ/L 134 MEQ/L Potassium Level 3.9 MEQ/L 4.7 MEQ/L Chloride Level 106 MEQ/L 97 MEQ/L Carbon Dioxide Level 22.9 MEQ/L 30.4 MEQ/L White Blood Count 6.6 TH/MM3 Red Blood Count 3.58 MIL/MM3 Hemoglobin 11.0 GM/DL Hematocrit 32.3 % Mean Corpuscular Volume 90.2 FL Mean Corpuscular Hemoglobin 30.9 PG Mean Corpuscular Hemoglobin Concent 34.2 % Red Cell Distribution Width 13.1 % Platelet Count 227 TH/MM3 Mean Platelet Volume 7.6 FL Neutrophils (%) (Auto) 75.8 % Lymphocytes (%) (Auto) 10.2 % Monocytes (%) (Auto) 10.7 % Eosinophils (%) (Auto) 2.8 % Basophils (%) (Auto) 0.5 % Neutrophils # (Auto) 5.0 TH/MM3 Lymphocytes # (Auto) 0.7 TH/MM3 Monocytes # (Auto) 0.7 TH/MM3 Eosinophils # (Auto) 0.2 TH/MM3 Basophils # (Auto) 0.0 TH/MM3 CBC Comment DIFF FINAL Differential Comment Anion Gap 7 MEQ/L Estimat Glomerular Filtration Rate 94 ML/MIN Radiology Last 24 hours Impressions Chest X-Ray 05/20/17 0600 Signed Impressions: Service Date/Time: Saturday, May 20, 2017 05:40 - CONCLUSION: Decreasing lung densities. No pneumothorax. Silverio Ruffin MD Narrative Exam GENERAL: 42-year-old well-nourished, well developed male lying in bed in no acute distress. SKIN: Warm and dry. HEAD: Atraumatic. Normocephalic. EYES: Pupils equal and round. No scleral icterus. ENT: No nasal bleeding or discharge. Mucous membranes pink and moist. NECK: Trachea midline. No JVD. CARDIOVASCULAR: Regular rate and rhythm. RESPIRATORY: No accessory muscle use. Lungs clear to auscultation. Breath sounds equal bilaterally. Right lateral chest tube secured to pleura vac system on water seal. No air leak noted. Palpable subcutaneous air noted on chest wall. GASTROINTESTINAL: Abdomen soft, non-tender, nondistended. + BS. MUSCULOSKELETAL: Extremities without cyanosis, or edema. MAEW, + perfused NEUROLOGICAL: Awake and alert. Normal speech. A/P Problem List: (1) Bilateral pneumothoraces ICD Codes: J93.9 - Pneumothorax, unspecified Status: Acute Assessment and Plan [place]: Fell off a roof approximately 12 feet landing on his back.? LOC. INJURIES: LEFT rib fxs ( 1-10) ? LEFT JORGE RIGHT rib fxs (1,2) BILAT PTX BILAT pulmonary contusions 05/15: BILAT CT placement 04/21: L CT mostly out - removed at bedside. 05/21: R CT removed LEFT rib fxs, ?LEFT JORGE, RIGHT rib fxs, BILAT PTX, BILAT pulmonary contusions Supportive care Pulmonary toileting CXR today shows an apical PTX, chest tube mostly withdrawn and barely in the pleural space Right chest tube in place to water seal Plan for right chest tube removal today CXR in a.m. Pain control Bowel regimen OOB- PT ordered Plan of care discussed with patient at bedside. Collaborating trauma Kristina agrees with plan. Case management consulted to assist with discharge planning. Plan to DC tomorrow if resp status stable. Remarks Patient seen and examined the nurse practitioner, chest x-ray stable chest tube output 100 cc will proceed with removal Danny Tabor May 21, 2017 16:04 Thao Ma MD May 23, 2017 16:23
[2017-05-21] MEDS ORDERED: METH500T3 PO (16:36)
[2017-05-21] MEDS ORDERED: PERI PO (16:36)
[2017-05-21] MEDS ORDERED: HYDR-3516 PO (16:36)
[2017-05-21] MEDS: ACETAMINOPHEN/HYDROcodone 325 MG/7.5 MG TAB PO PRN (21:12)
[2017-05-21] MEDS: REMOVE OLD LIDOCAINE PATCH T-DERMAL SCH (21:14)
[2017-05-22] MEDS: ACETAMINOPHEN/HYDROcodone 325 MG/7.5 MG TAB PO PRN ×2 (01:26→05:35)
[2017-05-22] MEDS: METHOCARBAMOL 500 MG TAB PO SCH ×2 (05:35→13:25)
[2017-05-22] MEDS: REMOVE OLD PATCH-FENTANYL T-DERMAL SCH (05:49)
--- NOTE | 2017-05-22 07:32 | RADRPT ---
EXAM DATE/TIME: 05/22/2017 06:27 [facility] COMPARISON: CHEST SINGLE AP, May 21, 2017, 12:52. INDICATIONS : Post chest tube removal from right side MEDICAL HISTORY : pneumothorax SURGICAL HISTORY : chest tube ENCOUNTER: Subsequent ACUITY: 4 - 6 days PAIN SCORE: 2/10 LOCATION: Right chest FINDINGS: The small right apical pneumothorax has decreased in size and now measures 11 mm. Subcutaneous emphys dionte is again noted within the right chest wall, bases of the neck bilaterally and to a much lesser ex tent left lower chest wall. The heart is stable. There is interval increased aeration of the basilar infiltrates with minimal residual streakiness noted. CONCLUSION: Interval decrease in size of right apical pneumothorax which now measures 11 mm. Interval increased a eration of the bibasilar infiltrates with minimal residual streakiness noted. Dane Wesley MD on May 22, 2017 at 7:25 Board Certified Radiologist. This report was verified electronically.
[2017-05-22 08:00] VITALS: BP 125/81; PULSE 78; RESP 16; TEMP 97.9; O2SAT 94
[2017-05-22] MEDS: LACTULOSE SYRUP 20 GM/30 ML CUP PO SCH (08:55)
[2017-05-22] MEDS: MAGNESIUM HYDROXIDE SUSP 30 ML CUP PO SCH (08:55)
[2017-05-22] MEDS: DOCUSATE SODIUM 50 MG/SENNA 8.6 MG TAB PO SCH (08:55)
[2017-05-22] MEDS: GABAPENTIN 300 MG CAP PO SCH ×2 (08:55→12:10)
[2017-05-22] MEDS: POLYETHYLENE GLYCOL 17 GM PKG PO SCH (08:56)
[2017-05-22] MEDS: LIDOCAINE HCL 5% PATCH T-DERMAL SCH (08:56)
[2017-05-22] MEDS: SODIUM CHLORIDE 0.9% FLUSH 10 ML FLUSH IV FLUSH SCH (08:57)
[2017-05-22] MEDS: ENOXAPARIN SODIUM 40 MG/0.4 ML SYRINGE SQ SCH (10:42)
[2017-05-22] MEDS: PANTOPRAZOLE SODIUM 40 MG VIAL IVP SCH (10:42)
[2017-05-22 12:00] VITALS: BP 122/83; PULSE 86; RESP 16; TEMP 97.8; O2SAT 96
--- NOTE | 2017-05-22 15:32 | HHI.DS ---
Discharge Summary Admission Date May 15, 2017 at 11:08 Discharge Date: May 22, 2017 Admitting Diagnosis Bilateral pneumothoraxes (1) Bilateral pneumothoraces ICD Codes: J93.9 - Pneumothorax, unspecified Status: Acute (2) Fall, initial encounter ICD Codes: W19.XXXA - Unspecified fall, initial encounter Diagnosis: Principal (3) Ribs, multiple fractures ICD Codes: S22.49XA - Multiple fractures of ribs, unspecified side, initial encounter for closed fracture Brief History S/P fall CBC/BMP: 05/19/17 0426 05/19/17 0426 Imaging Last Impressions Chest X-Ray 05/22/17 0600 Signed Impressions: Service Date/Time: Monday, May 22, 2017 06:27 - CONCLUSION: Interval decrease in size of right apical pneumothorax which now measures 11 mm. Interval increased aeration of the bibasilar infiltrates with minimal residual streakiness noted. Dane Wesley MD Upper Extremity CT 05/17/17 1403 Signed Impressions: Service Date/Time: Thursday, May 18, 2017 09:26 - CONCLUSION: The left shoulder is intact. Cosme Haji MD Chest CT 05/17/17 0000 Signed Impressions: Service Date/Time: Thursday, May 18, 2017 09:26 - CONCLUSION: 1. Persistent small bilateral pneumothoraces following chest tube placement. 2. No evidence of large loculated fluid collections or hemothorax. 3. Multiple rib fractures 4. Increasing subcutaneous emphysema and mediastinal emphysema. 5. Consolidating airspace disease bilaterally within the lungs Guru Johnson MD Thoracic Spine CT 05/15/17947 Signed Impressions: Service Date/Time: Monday, May 15, 2017 09:58 - CONCLUSION: 1. No thoracic spine fracture. Honorio Neal Jr., MD Maxillofacial CT 05/15/17947 Signed Impressions: Service Date/Time: Monday, May 15, 2017 09:51 - CONCLUSION: Negative for fracture. Moderate subcutaneous emphysema.. Carlos Mas MD FACBenja Lumbar Spine CT 05/15/17947 Signed Impressions: Service Date/Time: Monday, May 15, 2017 09:58 - CONCLUSION: Negative for acute fracture. Mild degenerative changes. Carlos Mas MD FACR Head CT 05/15/17947 Signed Impressions: Service Date/Time: Monday, May 15, 2017 09:51 - CONCLUSION: Negative for acute process. Carlos Mas MD FACR Cervical Spine CT 05/15/17947 Signed Impressions: Service Date/Time: Monday, May 15, 2017 09:51 - CONCLUSION: Negative for fracture. Extensive subcutaneous emphysema from bilateral pneumothoraces. Carlos Mas MD FACR Abdomen/Pelvis CT 05/15/17947 Signed Impressions: Service Date/Time: Monday, May 15, 2017 09:58 - CONCLUSION: 1. No abdominal visceral injury. 2. Multiple findings along the chest including subcutaneous emphysema, rib fractures, bilateral pneumothoraces, greater on the left. This will be discussed on CT chest. 3. Small incidental enhancing lesion in the liver. Silverio Ruffin MD Pelvis X-Ray 05/15/17939 Signed Impressions: Service Date/Time: Monday, May 15, 2017 09:33 - CONCLUSION: No acute disease. Honorio Neal Jr., MD PE at Discharge GENERAL: 42-year-old well-nourished, well developed male OOB in chair. SKIN: Warm and dry. HEAD: Atraumatic. Normocephalic. EYES: Pupils equal and round. No scleral icterus. ENT: No nasal bleeding or discharge. Mucous membranes pink and moist. NECK: Trachea midline. No JVD. CARDIOVASCULAR: Regular rate and rhythm. RESPIRATORY: No accessory muscle use. Lungs clear to auscultation. Breath sounds equal bilaterally. GASTROINTESTINAL: Abdomen soft, non-tender, nondistended. + BS. MUSCULOSKELETAL: Extremities without cyanosis, or edema. MAEW, + perfused NEUROLOGICAL: Awake and alert. Normal speech. Hospital Course RINCON: Fell off a roof approximately 12 feet landing on his back.? LOC. INJURIES: LEFT rib fxs ( 1-10) ? LEFT JORGE RIGHT rib fxs (1,2) BILAT PTX BILAT pulmonary contusions 05/15: BILAT CT placement 04/21: L CT mostly out - removed at bedside. 05/21: R CT removed LEFT rib fxs, ?LEFT JORGE, RIGHT rib fxs, BILAT PTX, BILAT pulmonary contusions Supportive care Pulmonary toileting CXR today shows small apical PTX Pain control Bowel regimen OOB- PT ordered Follow-up with PCP in 1 week Plan of care discussed with patient at bedside. Collaborating trauma MCarina agrees with plan. Case management consulted to assist with discharge planning. Patient is clear from trauma surgery standpoint to safely discharge home. Pt Condition on Discharge: Stable Discharge Disposition: Discharge Home Discharge Instructions DIET: Follow Instructions for: As Tolerated, No Restrictions Activities you can perform: Full Weight Bearing Activities to Avoid: Concussion Sports, Contact Sports, Strenuous Activity Danny Tabor May 22, 2017 15:32
== END 2017-05-22 14:00 | disposition home or self-care (01) | DRG 200 ==
LOC: NEPI 09:33 → EDBD 11:08 → NEDA 11:08 → N03A 13:07 → N06A 05-17 19:53
PROVIDERS: ADMIT Surgery; ATTEND Surgery
PROC: 0W9B30Z Drainage of Left Pleural Cavity with Drainage Device, Percutaneous Approach (ICD-10-PCS; principal; 2017-05-15)
PROC: 0W9930Z Drainage of Right Pleural Cavity with Drainage Device, Percutaneous Approach (ICD-10-PCS; 2017-05-15)
DX: S27.0XXA Traumatic pneumothorax, initial encounter (principal); S22.43XA Multiple fractures of ribs, bilateral, initial encounter for closed fracture; S27.322A Contusion of lung, bilateral, initial encounter; J98.11 Atelectasis; W13.2XXA Fall from, out of or through roof, initial encounter; E87.5 Hyperkalemia; D72.829 Elevated white blood cell count, unspecified; M54.9 Dorsalgia, unspecified
CPT/HCPCS: 32551; 70450; 70486; 71045; 71260; 72125; 72129; 72132; 72170; 73201; 74177; 80048; 80053; 85025; 85610; 85730; 86850; 86900; 86901; 90471; 94150; 94640; 94664; 94667; 94668; 96374; 96375; 96376; 99291; C9113; G0390; J0690; J1170; J1650; J1885; J2250; J2270; J2405; J7030; Q9967